=== PATIENT | female | born 1985 | race Caucasian/White ===

== ENCOUNTER 2016-11-28 10:21 | Emergency (ER) | payer MEDICARE, OTHER ==
[2016-11-28 10:34] VITALS: BP 122/82
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
[2016-11-28] MEDS ORDERED: Ondansetron 4 MG/2 ML SDV IVPUSH ONE (10:57)
[2016-11-28] MEDS ORDERED: HYDROmorphone 1 MG/ML Syringe IVPUSH ONE (10:57)
[2016-11-28] MEDS ORDERED: Dextrose 5%-0.9% NaCl 1,000 ML IV SCH (11:00)
[2016-11-28] MEDS ORDERED: diphenhydrAMINE 50 MG/ML SDV IVPUSH ONE ×2 (11:49→12:44)
[2016-11-28] MEDS ORDERED: HYDROmorphone 0.5 MG/0.5 ML Syringe IVPUSH ONE (11:49)
[2016-11-28] MEDS ORDERED: Ketorolac 30 MG/ML SDV IVPUSH SCH (12:30)
--- NOTE | 2016-11-29 10:31 | CT ---
Head CT Technique: Multiple axial sections through the brain were obtained. Intravenous contrast was not utilized. Comparison: Prior head CT exam of 12/05/10 and 04/09/12. Findings: Suboccipital craniotomy is noted as an interval change from previous exam. Slight area of associated encephalomalacia is seen containing dystrophic calcification within the posterior mid cerebellum. No other abnormal parenchymal densities are seen. No evidence of intracranial hemorrhage. No midline shift or mass effect is seen. No acute calvarial abnormality is identified. Impression: 1. Suboccipital craniotomy. Adjacent area of encephalomalacia containing calcification within the posterior mid cerebellum which appears as an interval change but otherwise old. 2. No acute intracranial abnormality is identified. Diagnostic code #2 Agree with preliminary report issued by [facility] ([facility] preliminary report dictated on 11/28/16, 12:39 PM Central Time
== END 2016-11-28 12:55 | disposition home or self-care (01) ==
LOC: JD.ED 10:21
DX: G43.909 Migraine, unspecified, not intractable, without status migrainosus (principal); F17.210 Nicotine dependence, cigarettes, uncomplicated; Z90.49 Acquired absence of other specified parts of digestive tract; Z98.890 Other specified postprocedural states; Z79.899 Other long term (current) drug therapy; Z88.1 Allergy status to other antibiotic agents; Z88.2 Allergy status to sulfonamides; Z88.5 Allergy status to narcotic agent; Z88.8 Allergy status to other drugs, medicaments and biological substances
CPT/HCPCS: 36415; 70450; 80053; 85025; 86140; 96361; 96374; 96375; 96376; 99284; J1170; J1200; J1885; J2405; J7042

== ENCOUNTER 2016-11-30 16:26 | Emergency (ER) | payer OTHER ==
[2016-11-30 16:45] VITALS: BP 134/91
[2016-11-30] MEDS ORDERED: Ketorolac 60 MG/2 ML SDV IM ONE (17:09)
[2016-11-30] MEDS ORDERED: Ondansetron 4 MG Tab.DIS PO ONE (17:09)
[2016-11-30] MEDS ORDERED: Haloperidol Lactate 5 MG/ML SDV IM ONE (17:09)
[2016-11-30] MEDS ORDERED: diphenhydrAMINE 50 MG/ML SDV IM ONE (17:09)
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
[2016-11-30] MEDS ORDERED: Haloperidol Lactate 5 MG/ML SDV ONE (17:34)
== END 2016-11-30 18:20 | disposition home or self-care (01) ==
LOC: JD.ED 16:26
DX: R51 Headache (principal); F17.210 Nicotine dependence, cigarettes, uncomplicated; Z88.1 Allergy status to other antibiotic agents; Z88.5 Allergy status to narcotic agent; Z88.2 Allergy status to sulfonamides; Z88.8 Allergy status to other drugs, medicaments and biological substances; Z79.899 Other long term (current) drug therapy; Z98.890 Other specified postprocedural states; Z90.49 Acquired absence of other specified parts of digestive tract
CPT/HCPCS: 96372; 99284; A9270; J1200; J1630; J1885; 99283

== ENCOUNTER 2016-12-01 20:48 | Emergency (ER) | payer OTHER ==
[2016-12-01 20:59] VITALS: BP 125/92
[2016-12-01] MEDS ORDERED: methylPREDNISolone Sodium Succinate 125 MG/2 ML SDV IVPUSH ONE (21:02)
--- NOTE | 2016-12-01 21:02 | EDM.PDOC ---
ED HPI GENERAL MEDICAL PROBLEM - General Chief Complaint: Allergic Reaction Stated Complaint: ALLERGIC REACTION Time Seen by Provider: 12/01/16 20:55 - History of Present Illness INITIAL COMMENTS - FREE TEXT/NARRATIVE: 31-year-old female presents emergency room with facial swelling tongue swelling and itchiness all over. Patient states she woke up with itching all over and then developed some hives. About 45 minutes prior to arrival the patient was eating a cucumber and developed some facial and tongue swelling. She denies any breathing difficulties or shortness of breath she is clearing her secretions without difficulty. The patient denies having a reaction like this in the past. The patient has attempted Benadryl she took 50 mg 30 minutes prior to arrival. Face Pain Score (Numeric/FACES): 7 - Related Data Allergies Allergy/AdvReac Type Severity Reaction Status Date / Time amoxicillin [Amoxicillin] Allergy Rash Verified 11/30/16 16:45 metoclopramide HCl Allergy Rash Verified 11/30/16 16:45 [From Reglan] morphine Allergy Rash Verified 11/30/16 16:45 prochlorperazine edisylate Allergy Rash Verified 11/30/16 16:45 [From Compazine] prochlorperazine maleate Allergy Rash Verified 11/30/16 16:45 [From Compazine] Sulfa (Sulfonamide Allergy Rash Verified 11/30/16 16:45 Antibiotics) Home Meds: Home Meds Omeprazole [Prilosec] 20 mg PO DAILY 03/08/14 [History] ALPRAZolam [Alprazolam] 1 mg PO Q8H PRN #60 tablet 11/28/16 [Rx] Duloxetine. 1 tab PO DAILY 11/28/16 [History] busPIRone HCl [busPIRone] 30 mg PO BID #60 tablet 11/28/16 [Rx] levETIRAcetam [Keppra] 1,000 mg PO BID #60 tablet 11/28/16 [Rx] oxyCODONE HCl/Acetaminophen [Percocet 5-325 mg Tablet] 1 - 2 each PO Q4H PRN # 12 tablet 11/28/16 [Rx] traZODone HCl [Trazodone HCl] 100 mg PO BEDTIME #60 tablet 11/28/16 [Rx] Prednisone [IJD: predniSONE] 60 mg PO WITHBREAKFAST #15 tab 12/01/16 [Rx] Past Medical History Other Gastrointestinal History: crohns Neurological History: Reports: Seizure, Other (See Below) Other Neuro History: brain tumor - Past Surgical History HEENT Surgical History: Reports: Tonsillectomy GI Surgical History: Reports: Appendectomy, Cholecystectomy, Other (See Below) Other GI Surgeries/Procedures: colon resection Neurological Surgical History: Reports: Other (See Below) Other Neurological Surgeries/Procedures: tumor removed Social & Family History - Tobacco Use Smoking Status *Q: Current Every Day Smoker Years of Tobacco use: 13 Packs/Tins Daily: 0.5 - Caffeine Use Caffeine Use: Reports: Coffee - Alcohol Use Days Per Week of Alcohol Use: 0 - Recreational Drug Use Recreational Drug Use: No - Living Situation & Occupation Living situation: Reports: Occupation: Employed ED ROS ALLERGIC REACTION - Review of Systems Review Of Systems: See Below Constitutional: Reports: No Symptoms HEENT: Reports: Other (Facial swelling tongue swelling). Denies: No Symptoms, Ear Discharge, Ear Pain, Throat Pain, Throat Swelling, Vision Change Respiratory: Reports: No Symptoms Cardiovascular: Reports: No Symptoms Endocrine: Reports: No Symptoms : Reports: No Symptoms Neurological: Reports: No Symptoms ED EXAM GENERAL NO PERIP PULSE - Physical Exam Exam: See Below Exam Limited By: No Limitations General Appearance: Alert, No Apparent Distress, Other (With her facial swelling tongue swelling her condition is concerning) Eye Exam: Bilateral Eye: Normal Inspection Ears: Normal External Exam, Normal Canal, Hearing Grossly Normal, Normal TMs Nose: Normal Inspection, Normal Mucosa, No Blood Throat/Mouth: Other (Tongue is somewhat swollen airway appears normal) Head: Other (Mild facial swelling) Neck: Normal Inspection, Supple, Non-Tender. No: Lymphadenopathy (L), Lymphadenopathy (R) Respiratory/Chest: No Respiratory Distress, Lungs Clear, Normal Breath Sounds GI/Abdominal: Normal Bowel Sounds, Soft, Non-Tender Extremities: Normal Inspection, No Pedal Edema, Redness Neurological: Alert, Oriented Course - Vital Signs Last Recorded V/S: Last Vital Signs Temp 36.4 C 12/01/16 20:52 Pulse 104 H 12/01/16 20:52 Resp 16 12/01/16 20:52 BP 125/92 H 12/01/16 20:52 Pulse Ox 99 12/01/16 20:52 - Orders/Labs/Meds Meds: Medications Discontinued Medications Generic Name Dose Route Start Last Admin Trade Name Rachel PRN Reason Stop Dose Admin Epinephrine HCl 0.5 mg 12/01/16 21:03 12/01/16 21:11 Adrenalin 1:1000 IM 12/01/16 21:04 0.5 mg ONETIME ONE Administration Famotidine 40 mg 12/01/16 21:03 12/01/16 21:17 Pepcid IVPUSH 12/01/16 21:04 40 mg ONETIME ONE Administration Famotidine Confirm 12/01/16 21:22 12/01/16 21:23 Pepcid Administered 12/01/16 21:23 Not Given Dose 20 mg .ROUTE .STK-MED ONE Methylprednisolone Sodium Succinate 125 mg 12/01/16 21:02 12/01/16 21:13 Solu-Medrol IVPUSH 12/01/16 21:03 125 mg ONETIME ONE Administration Ondansetron HCl 4 mg 12/01/16 21:17 12/01/16 21:26 Zofran IVPUSH 12/01/16 21:18 4 mg ONETIME ONE Administration - Re-Assessments/Exams Free Text/Narrative Re-Assessment/Exam: 12/01/16 21:18 Patient received epinephrine her talking is getting better and facial and tongue swelling improving patient received Solu-Medrol 40 mg of Pepcid I did not give Benadryl as she took 50 mg prior to arrival we'll watch closely. 12/01/16 23:40 Patient is doing much better like to go home and get some rest she's received IV Solu-Medrol 125 mg Pepcid 40 mg. She took her Benadryl at home just before coming in. She would like to go home and get some rest. Departure - Departure Time of Disposition: 23:41 Disposition: Home, Self-Care 01 Clinical Impression: Allergic reaction, Tongue swelling - Discharge Information Prescriptions: Prednisone [IJD: predniSONE] 60 mg PO WITHBREAKFAST #15 tab Referrals: PCP,None [Primary Care Provider] - Forms: ED Department Discharge Additional Instructions: Return to the emergency room with any questions problems or worsening symptoms. Avoid cucumbers. You been started on prednisone you'll take 60 mg every morning for 5 days. Continue your Benadryl 25-50 mg every 6 hours as needed. Take Pepcid, this is [id number], 20 mg twice daily for 1 week and then decrease it to once daily. Try loratadine 10 mg daily this may help with your chronic itching. Follow-up in the Hospital clinic [id number]. Or with the provider of your choice on Saturday or Saturday for recheck
[2016-12-01] MEDS ORDERED: Famotidine 20 MG/2 ML SDV IVPUSH ONE (21:03)
[2016-12-01] MEDS ORDERED: EPINEPHrine 1 MG/ML SDV IM ONE (21:03)
[2016-12-01] MEDS ORDERED: Ondansetron 4 MG/2 ML SDV IVPUSH ONE (21:17)
[2016-12-01] MEDS ORDERED: Famotidine 20 MG/2 ML SDV ONE (21:22)
== END 2016-12-02 | disposition home or self-care (01) ==
LOC: JD.ED 20:48
DX: R22.0 Localized swelling, mass and lump, head (principal); L50.9 Urticaria, unspecified; L29.9 Pruritus, unspecified; T78.1XXA Other adverse food reactions, not elsewhere classified, initial encounter; F17.210 Nicotine dependence, cigarettes, uncomplicated; Z88.5 Allergy status to narcotic agent; Z88.2 Allergy status to sulfonamides; Z88.8 Allergy status to other drugs, medicaments and biological substances; Z79.899 Other long term (current) drug therapy; Z90.49 Acquired absence of other specified parts of digestive tract; Z98.890 Other specified postprocedural states; Z88.1 Allergy status to other antibiotic agents
CPT/HCPCS: 96372; 96374; 96375; 99283; J0171; J2405; J2930

== ENCOUNTER 2016-12-03 00:47 | Emergency (ER) | payer OTHER ==
[2016-12-03 00:56] VITALS: BP 134/101
[2016-12-03] MEDS ORDERED: levETIRAcetam Soln 500 MG/5 ML Cup PO STA (01:50)
[2016-12-03] MEDS ORDERED: Ketorolac 30 MG/ML SDV IVPUSH STA (01:53)
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
== END 2016-12-03 03:37 | disposition home or self-care (01) ==
LOC: JD.ED 00:47
DX: G40.909 Epilepsy, unspecified, not intractable, without status epilepticus (principal); G44.209 Tension-type headache, unspecified, not intractable; F19.10 Other psychoactive substance abuse, uncomplicated; F17.210 Nicotine dependence, cigarettes, uncomplicated; Z88.8 Allergy status to other drugs, medicaments and biological substances; Z88.2 Allergy status to sulfonamides; Z88.5 Allergy status to narcotic agent; Z90.49 Acquired absence of other specified parts of digestive tract; Z90.710 Acquired absence of both cervix and uterus
CPT/HCPCS: 36415; 80053; 80306; 82550; 83735; 84100; 85025; 96374; 99285; A9270; G0480; J1885; 99284

== ENCOUNTER 2017-09-17 00:33 | Emergency (ER) | payer OTHER ==
[2017-09-17 00:41] VITALS: BP 117/80
[2017-09-17] MEDS ORDERED: predniSONE 20 MG Tab PO STA (02:02)
--- NOTE | 2017-09-17 02:07 | EDM.PDOC ---
ED HPI GENERAL MEDICAL PROBLEM - General Chief Complaint: Allergic Reaction Stated Complaint: poss allergic reaction Time Seen by Provider: 09/17/17 01:44 Source of Information: Reports: Patient History Limitations: Reports: No Limitations - History of Present Illness INITIAL COMMENTS - FREE TEXT/NARRATIVE: The patient states that she developed general pruritus and a nonraised erythematous rash in numerous areas on her body, around 17:00. The pruritus and rash appear to spare her palms and soles. She states that she took 25 mg of Benadryl around 20:00, that did not initially help, although now she is feeling much better. She states that she has had 5 episodes of emesis since 17:00. No recent diarrhea. The patient denies lip swelling, tongue swelling, difficulty swallowing, or other symptoms of angioedema. She denies having any respiratory symptoms, such as wheezing or dyspnea. No prior similar symptoms. The patient's PCP is Dr. Gates. - Related Data Allergies Allergy/AdvReac Type Severity Reaction Status Date / Time amoxicillin [Amoxicillin] Allergy Rash Verified 11/30/16 16:45 metoclopramide HCl Allergy Rash Verified 11/30/16 16:45 [From Reglan] morphine Allergy Rash Verified 11/30/16 16:45 prochlorperazine edisylate Allergy Rash Verified 11/30/16 16:45 [From Compazine] prochlorperazine maleate Allergy Rash Verified 11/30/16 16:45 [From Compazine] Sulfa (Sulfonamide Allergy Rash Verified 11/30/16 16:45 Antibiotics) Home Meds: Home Meds levETIRAcetam [Keppra] 500 mg PO BID 12/03/16 [History] Amitriptyline [Elavil] 200 mg PO BEDTIME 09/17/17 [History] DULoxetine HCl [Cymbalta] 60 mg PO DAILY 09/17/17 [History] Metoprolol Tartrate 50 mg PO DAILY 09/17/17 [History] predniSONE [Prednisone] 1 tab PO BEDTIME #3 tablet 09/17/17 [Rx] Past Medical History Gastrointestinal History: Reports: Inflammatory Bowel Disease (Crohn disease) Neurological History: Reports: Seizure, Other (See Below) (Pituitary tumor, excised) Psychiatric History: Reports: Addiction - Past Surgical History Head Surgeries/Procedures: Reports: Craniotomy (For excision of pituitary tumor March 2016) HEENT Surgical History: Reports: Tonsillectomy GI Surgical History: Reports: Appendectomy, Cholecystectomy, Other (See Below) ( Hemicolectomy) Female Surgical History: Reports: Hysterectomy Musculoskeletal Surgical History: Reports: Other (See Below) (Left elbow pinning ) Social & Family History - Family History Family Medical History: Noncontributory - Tobacco Use Smoking Status *Q: Current Every Day Smoker Years of Tobacco use: 17 Packs/Tins Daily: 1 - Caffeine Use Caffeine Use: Reports: Coffee - Alcohol Use Alcohol Use History: Yes Alcohol Use Frequency: Binges - Recreational Drug Use Recreational Drug Use: Yes Recreational Drug Type: Reports: Cocaine, Heroin - Living Situation & Occupation Living situation: Reports: (), with Family (parents) Occupation: Unemployed ED ROS ALLERGIC REACTION - Review of Systems Review Of Systems: ROS reveals no pertinent complaints other than HPI. ED EXAM GENERAL NO PERIP PULSE - Physical Exam Exam: See Below Exam Limited By: No Limitations General Appearance: Alert, WD/WN, No Apparent Distress Eye Exam: Bilateral Eye: Normal Inspection Ears: Normal External Exam, Hearing Grossly Normal Nose: Normal Inspection, No Blood Throat/Mouth: Normal Inspection, Normal Lips, Normal Teeth, Normal Gums, Normal Oropharynx (no uvular swellinig), Normal Voice, No Airway Compromise Head: Atraumatic, Normocephalic Neck: Normal Inspection, Supple, Non-Tender, Full Range of Motion. No: Lymphadenopathy (L), Lymphadenopathy (R) Respiratory/Chest: No Respiratory Distress, Lungs Clear, Normal Breath Sounds, No Accessory Muscle Use. No: Wheezing Cardiovascular: Normal Peripheral Pulses, Regular Rate, Rhythm, No Edema, No Gallop, No JVD, No Murmur, No Rub GI/Abdominal: Normal Bowel Sounds, Soft, Non-Tender, No Organomegaly, No Distention, No Abnormal Bruit, No Mass (Female) Exam: Deferred Rectal (Female) Exam: Deferred Back Exam: Normal Inspection, Full Range of Motion, NT Extremities: Normal Inspection, Normal Range of Motion, No Pedal Edema, Normal Capillary Refill Neurological: Alert, Oriented, Normal Cognition, No Motor/Sensory Deficits Psychiatric: Normal Affect Skin Exam: Warm, Dry, Intact, Normal Color, Erythema (There are a few areas on the patient's body, including her anterior abdomen, medial distal right leg, with patches of non-raised erythema, that she states are still pruritic) Course - Vital Signs Last Recorded V/S: Last Vital Signs Temp 36.8 C 09/17/17 00:38 Pulse 99 09/17/17 00:38 Resp 16 09/17/17 00:38 BP 117/80 09/17/17 00:38 Pulse Ox 96 09/17/17 00:38 - Orders/Labs/Meds Meds: Medications Discontinued Medications Generic Name Dose Route Start Last Admin Trade Name Rachel PRN Reason Stop Dose Admin Prednisone 60 mg 09/17/17 02:02 09/17/17 02:10 Prednisone PO 09/17/17 02:03 60 mg ONETIME STA Administration - Re-Assessments/Exams Free Text/Narrative Re-Assessment/Exam: 09/17/17 02:03 The patient presents with symptoms of generalized pruritus and erythematous rash , that spared her palms and soles. She also had 5 episodes of nausea and emesis. It is possible that the patient is suffering from idiopathic urticaria, but I think it more likely that she is suffering from an allergic reaction to either medication or food. For tonight purposes, she will be given 60 mg prednisone, and I will prescribe a three-day course of 20 mg per night. I will refer her to Dr. Davila, Ordnance Handler. Departure - Departure Time of Disposition: 02:05 Disposition: Home, Self-Care 01 Condition: Good Clinical Impression: Generalized pruritus, Erythematous rash - Discharge Information Prescriptions: predniSONE [Prednisone] 1 tab PO BEDTIME #3 tablet Instructions: Pruritus Referrals: Kan Gates [Primary Care Provider] - Quintin Davila MD [Ordering Only Provider] - Forms: ED Department Discharge Additional Instructions: You were seen in the emergency room for generalized itchiness, a red rash, nausea, and vomiting The cause of your symptoms is not certain, but is MOST LIKELY due to an allergic reaction to either a medicine or food that you ate. You have been started on the steroid prednisone. A prescription for prednisone has been sent to the [facility], located in the [facility] store. Take one tablet at bedtime, starting ton, 09/17/2017, as prescribed. Follow-up with the Ordnance Handler Dr. Quintin Davila in [place], at the next available appointment, to determine what the cause of your reaction was. If your symptoms fail to improve, or return after you have finished the prednisone, please follow-up with your PCP, Dr. Gates, or return to the ER for reevaluation.
== END 2017-09-17 02:16 | disposition home or self-care (01) ==
LOC: JD.ED 00:33
DX: L29.8 Other pruritus (principal); F17.210 Nicotine dependence, cigarettes, uncomplicated; Z88.1 Allergy status to other antibiotic agents; Z88.8 Allergy status to other drugs, medicaments and biological substances; Z88.5 Allergy status to narcotic agent; Z88.2 Allergy status to sulfonamides; Z79.899 Other long term (current) drug therapy
CPT/HCPCS: 99283; A9270

== ENCOUNTER 2017-11-20 22:46 | Emergency (ER) | payer OTHER ==
[2017-11-20 23:04] VITALS: BP 123/88
--- NOTE | 2017-11-20 23:04 | EDM.PDOC ---
ED HPI GENERAL MEDICAL PROBLEM - General Chief Complaint: ENT Problem Stated Complaint: TOOTH PAIN Time Seen by Provider: 11/20/17 22:56 Source of Information: Reports: Patient History Limitations: Reports: No Limitations - History of Present Illness INITIAL COMMENTS - FREE TEXT/NARRATIVE: Patient presents with severe dental pain. She had a root canal and she has grand mal seizure within the last week and it caused her to bite her tongue but also had the crown popped out of tooth #31. She since had severe pain and not able to control with [id number] remedies such as Orajel, ice, meloxicam, Tylenol. No fevers or chills no swallowing difficulty no shortness of breath no facial swelling. Denies she had a hysterectomy. She does have allergies that are reviewed including amoxicillin Reglan morphine Right Lower Tooth/Teeth Pain Score (Numeric/FACES): 8 - Related Data Allergies Allergy/AdvReac Type Severity Reaction Status Date / Time amoxicillin [Amoxicillin] Allergy Rash Verified 11/30/16 16:45 metoclopramide HCl Allergy Rash Verified 11/30/16 16:45 [From Reglan] morphine Allergy Rash Verified 11/30/16 16:45 prochlorperazine edisylate Allergy Rash Verified 11/30/16 16:45 [From Compazine] prochlorperazine maleate Allergy Rash Verified 11/30/16 16:45 [From Compazine] Sulfa (Sulfonamide Allergy Rash Verified 11/30/16 16:45 Antibiotics) Home Meds: Home Meds levETIRAcetam [Keppra] 500 mg PO BID 12/03/16 [History] Amitriptyline [Elavil] 200 mg PO BEDTIME 09/17/17 [History] DULoxetine HCl [Cymbalta] 60 mg PO DAILY 09/17/17 [History] Metoprolol Tartrate 50 mg PO DAILY 09/17/17 [History] Acetaminophen/HYDROcodone [[place] 325-5 MG] 1 - 2 tab PO Q4H PRN #10 tablet 11/20 [Rx] Cephalexin [Keflex] 500 mg PO TID #30 capsule 11/20/17 [Rx] Past Medical History Gastrointestinal History: Reports: Inflammatory Bowel Disease Other Gastrointestinal History: crohns Neurological History: Reports: Seizure, Other (See Below) Other Neuro History: brain tumor Psychiatric History: Reports: Addiction - Past Surgical History Head Surgeries/Procedures: Reports: Craniotomy HEENT Surgical History: Reports: Oral Surgery, Tonsillectomy GI Surgical History: Reports: Appendectomy, Cholecystectomy, Other (See Below) Female Surgical History: Reports: Hysterectomy Musculoskeletal Surgical History: Reports: Other (See Below) Social & Family History - Family History Family Medical History: Noncontributory - Tobacco Use Smoking Status *Q: Current Every Day Smoker Years of Tobacco use: 16 Packs/Tins Daily: 0.5 - Caffeine Use Caffeine Use: Reports: Coffee - Recreational Drug Use Recreational Drug Use: No - Living Situation & Occupation Living situation: Reports: (), with Family (parents) Occupation: Unemployed ED ROS ENT - Review of Systems Review Of Systems: See Below Constitutional: Denies: Fever, Chills HEENT: Reports: Dental Pain Respiratory: Denies: Shortness of Breath, Cough Neurological: Denies: Headache ED EXAM, ENT - Physical Exam Exam: See Below Exam Limited By: No Limitations General Appearance: Alert, WD/WN, Mild Distress Mouth/Throat: Normal Inspection, Normal Gums, Dental Tenderness, Other (Does appear to be a cracker least opening where she must of had a root canal at tooth number of believe 31. No gumline swelling no. Apical abscess, no sublingual swelling, no trismus.). No: Drooling, Gum Swelling, Pharyngeal Erythema, Throat Swelling, Trismus Course - Vital Signs Text/Narrative:: Dental pain around tooth #31, placed a dental block using the tetracaine and had good results with anesthesia. Will start patient on Keflex for antibiotic possible infection and give her a small dose of hydrocodone if needed otherwise she is meloxicam and other interventions and follow-up with the dentist. Last Recorded V/S: Last Vital Signs Temp 99.0 F 11/20/17 23:02 Pulse 93 11/20/17 23:02 Resp 20 11/20/17 23:02 BP 123/88 11/20/17 23:02 Pulse Ox 98 11/20/17 23:02 Departure - Departure Time of Disposition: 23:11 Disposition: Home, Self-Care 01 Clinical Impression: Toothache - Discharge Information Referrals: PCP,None [Primary Care Provider] - Forms: ED Department Discharge Additional Instructions: Follow up with the dentist. Return sooner if any increasing pain, fevers, swallowing difficulty, swelling, worse
[2017-11-20] MEDS ORDERED: Acetaminophen/HYDROcodone 325-5 MG Tab PO ONE (23:13)
== END 2017-11-20 23:23 | disposition home or self-care (01) ==
LOC: JD.ED 22:46
DX: K08.89 Other specified disorders of teeth and supporting structures (principal); F17.210 Nicotine dependence, cigarettes, uncomplicated; Z79.899 Other long term (current) drug therapy; Z88.2 Allergy status to sulfonamides; Z88.5 Allergy status to narcotic agent; Z88.8 Allergy status to other drugs, medicaments and biological substances
CPT/HCPCS: 64400; 99283; A9270

== ENCOUNTER 2018-06-25 15:19 | Emergency (ER) | payer MEDICAID ==
[2018-06-25 15:36] VITALS: BP 118/89
[2018-06-25] MEDS ORDERED: metroNIDAZOLE 500 MG Tab PO ONE (15:49)
[2018-06-25] MEDS ORDERED: Doxycycline 100 MG Cap PO ONE (15:49)
--- NOTE | 2018-06-25 15:56 | EDM.PDOC ---
ED HPI GENERAL MEDICAL PROBLEM - General Chief Complaint: Bite:Animal, Insect Stated Complaint: ANIMAL BITE/CAT Time Seen by Provider: 06/25/18 15:28 Source of Information: Reports: Patient, RN Notes Reviewed History Limitations: Reports: No Limitations - History of Present Illness INITIAL COMMENTS - FREE TEXT/NARRATIVE: The patient states that she was bitten on her left wrist and scratched in numerous places on her left forearm by her girlfriend's cat around 15:25 this afternoon. She is otherwise uninjured. The patient reports a rash, possibly hives, to both amoxicillin and sulfa, as an adult. The patient's PCP is Dr. Cristina Almodovar. Left Arm Pain Score (Numeric/FACES): 8 - Related Data Allergies Allergy/AdvReac Type Severity Reaction Status Date / Time amoxicillin [Amoxicillin] Allergy Rash Verified 06/25/18 15:35 metoclopramide HCl Allergy Rash Verified 06/25/18 15:35 [From Reglan] morphine Allergy Rash Verified 06/25/18 15:35 prochlorperazine edisylate Allergy Rash Verified 06/25/18 15:35 [From Compazine] prochlorperazine maleate Allergy Rash Verified 06/25/18 15:35 [From Compazine] Sulfa (Sulfonamide Allergy Rash Verified 06/25/18 15:35 Antibiotics) Home Meds: Home Meds levETIRAcetam [Keppra] 500 mg PO BID 12/03/16 [History] Amitriptyline [Elavil] 200 mg PO BEDTIME 09/17/17 [History] DULoxetine HCl [Cymbalta] 60 mg PO DAILY 09/17/17 [History] Metoprolol Tartrate 50 mg PO DAILY 09/17/17 [History] Ondansetron [Zofran ODT] 4 mg PO Q6H PRN #20 tab.dis 02/14/18 [Rx] predniSONE [Prednisone] 40 mg PO DAILY #10 tablet 02/14/18 [Rx] Doxycycline [Vibramycin] 1 tab PO Q12HR #10 tab 06/25/18 [Rx] metroNIDAZOLE [Flagyl] 1 tab PO Q8H #15 tab 06/25/18 [Rx] Past Medical History Gastrointestinal History: Reports: Inflammatory Bowel Disease (Crohn disease) Neurological History: Reports: Seizure (2 pituitary tumor) Psychiatric History: Reports: Addiction (cocaine, heroin) - Past Surgical History Head Surgeries/Procedures: Reports: Craniotomy (pituitary tumor excision March 2016) HEENT Surgical History: Reports: Tonsillectomy GI Surgical History: Reports: Appendectomy, Cholecystectomy (2009), Other (See Below) (Hemicolectomy) Female Surgical History: Reports: Hysterectomy (partial) Musculoskeletal Surgical History: Reports: Other (See Below) (Left elbow pinning ) Social & Family History - Family History Family Medical History: Noncontributory - Tobacco Use Smoking Status *Q: Current Every Day Smoker Years of Tobacco use: 18 Packs/Tins Daily: 0.5 Packs/Tins Daily Comment: Down from 1 ppd - Caffeine Use Caffeine Use: Reports: Coffee - Alcohol Use Alcohol Use History: Yes Date/Time of Last Drink Comment: last drank around 2015 Alcohol Use Frequency: Binges - Recreational Drug Use Recreational Drug Use: Yes Drug Use in Last 12 Months: No Recreational Drug Type: Reports: Cocaine (last smoked 2017), Heroin (last injected 2017), Marijuana/Hashish (last smoked 2016) - Living Situation & Occupation Living situation: Reports: , with Significant Other (Girlfriend) 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 ED EXAM, ANIMAL BITE - Physical Exam Exam: See Below Exam Limited By: No Limitations General Appearance: Alert, WD/WN, No Apparent Distress Extremities: Other (Numerous scratches to the left forearm, several of which are deep enough to cause bleeding, but none of which are severe enough to require suturing. There is at least one, and possibly two puncture wounds to the dorsal aspect of the distal forearm/proximal left wrist. Neurovascular status of the left upper extremity is intact.) Course - Vital Signs Last Recorded V/S: Last Vital Signs Temp 36.4 C 06/25/18 15:29 Pulse 85 06/25/18 15:29 Resp 16 06/25/18 15:29 BP 118/89 06/25/18 15:29 Pulse Ox 98 06/25/18 15:29 - Orders/Labs/Meds Meds: Medications Discontinued Medications Generic Name Dose Route Start Last Admin Trade Name Freq PRN Reason Stop Dose Admin Doxycycline Hyclate 100 mg 06/25/18 15:49 06/25/18 15:52 Vibramycin PO 06/25/18 15:50 100 mg ONETIME ONE Administration Metronidazole 500 mg 06/25/18 15:49 06/25/18 15:52 Flagyl PO 06/25/18 15:50 500 mg ONETIME ONE Administration - Re-Assessments/Exams Free Text/Narrative Re-Assessment/Exam: 06/25/18 15:51 The patient has at least one puncture wound to the dorsal aspect of her left wrist from a cat bite, along with numerous scratches to her left forearm. Antibiotics are absolutely required, however, the patient reports the development of a rash, possibly hives, to both amoxicillin and sulfa, therefore the patient will require doxycycline and either Flagyl or clindamycin for 3-5 days. I have elected to prescribe her doxycycline and oral Flagyl, as I believe the side effect profile is preferable to doxycycline and clindamycin. She will need to keep the wounds clean with ordinary soap and water, and I explained to her that if there is any suggestion of an infection developing, that she either return here or follow up with her PCP immediately. Departure - Departure Time of Disposition: 15:56 Disposition: Home, Self-Care 01 Condition: Fair Clinical Impression: Cat bite of left wrist, Cat scratch of left forearm - Discharge Information *PRESCRIPTION DRUG MONITORING PROGRAM REVIEWED*: Not Applicable *COPY OF PRESCRIPTION DRUG MONITORING REPORT IN PATIENT LIZ: Not Applicable Prescriptions: Doxycycline [Vibramycin] 1 tab PO Q12HR #10 tab metroNIDAZOLE [Flagyl] 1 tab PO Q8H #15 tab Instructions: Animal Bite, [id number] Referrals: Cristina Almodovar MD [Primary Care Provider] - Forms: ED Department Discharge Additional Instructions: You were seen in the emergency room after being bitten on your left wrist and scratched on your left forearm by a cat. You have been started on the antibiotics metronidazole and doxycycline. Prescriptions for metronidazole and doxycycline have been sent to the [facility], located in the [facility] store. Take one tablet of metronidazole every 8 hours, starting around midnight tonight , as prescribed. Take one tablet of doxycycline every 12 hours, starting early tomorrow morning, , 06/26/2018, as prescribed. Finish both prescriptions unless told otherwise by a doctor. Take [id number] ibuprofen as needed for discomfort. Keep the wounds clean with ordinary soap and water. If there is any bleeding, cover the wound with a Band-Aid. As discussed, cat bites are very serious and can lead to severe infections. If there is any suggestion that the puncture wounds are becoming infected, such as increased redness, swelling, or purulent drainage, please either return to the ER or see your PCP, Dr. Almodovar, as soon as possible. Strongly consider getting rid of the cat.
== END 2018-06-25 16:10 | disposition home or self-care (01) ==
LOC: JD.ED 15:19
DX: S61.552A Open bite of left wrist, initial encounter (principal); S50.812A Abrasion of left forearm, initial encounter; F17.210 Nicotine dependence, cigarettes, uncomplicated; Z79.899 Other long term (current) drug therapy; Z88.1 Allergy status to other antibiotic agents; Z88.5 Allergy status to narcotic agent; Z88.8 Allergy status to other drugs, medicaments and biological substances; Z88.2 Allergy status to sulfonamides; W55.01XA Bitten by cat, initial encounter
CPT/HCPCS: 99283; A9270

== ENCOUNTER 2018-07-24 18:36 | Emergency (ER) | payer MEDICAID ==
[2018-07-24] MEDS ORDERED: Aspirin 81 MG Tab.Chew PO ONE (19:34)
[2018-07-24] MEDS ORDERED: Nitroglycerin 0.3 MG Tab.SL SL ONE (19:47)
[2018-07-24] MEDS ORDERED: Sodium Chloride 0.9% 500 ML IV ONE (19:48)
[2018-07-24 19:57] VITALS: BP 108/71
--- NOTE | 2018-07-24 21:01 | CR ---
Chest: 2 views of the chest were obtained. Heart size and mediastinum are normal. Lungs are clear. Bony structures are unremarkable. Surgical clips are seen from prior cholecystectomy. Impression: 1. Nothing acute is seen on chest x-ray. Diagnostic code #2
--- NOTE | 2018-07-24 21:16 | EDM.PDOC ---
ED HPI GENERAL MEDICAL PROBLEM - General Chief Complaint: Chest Pain Stated Complaint: CHEST PAIN Time Seen by Provider: 07/24/18 18:48 Source of Information: Reports: Patient, Old Records History Limitations: Reports: No Limitations - History of Present Illness INITIAL COMMENTS - FREE TEXT/NARRATIVE: 33 yo F with h/o "ischemic cardiac disease" comes in today for sudden onset of pain to the left chest about one hour before coming in to the ED while bending down at work. States pain feels like someone is "grinding my heart tighter and tighter on each side", radiates to left arm and jaw. States it is 8/10. She states bending over and movement makes it worse, she feels faint, and nauseated. She has not tried any medications at home. She states she has had pain like this before, about 4 months ago was the last episode, and she had a stress test done. She states she was diagnosed with "ischemic cardiac disease". The nuclear med report here on 05/30/18 reads "possible mild ischemia of the anterior wall". She states she was told that she will likely need a "pacemaker and stent". She was also told that whenever she has these episodes to come into the ED for further workup. She just quit smoking 1 week ago- currently on Chantix. Was smoking 1 ppd x19 years. She also has h/o polysubstance abuse. PCP is Cristina Almodovar. She states her parts counter specialist is at the [facility] and she has an appointment in September/October. Per her PCP records, she was also started on GERD treatment (omeprazole) which has not helped as well as 81mg ASA daily. She was supposed to f/u with Dr. Levy in [place] on 06/06/18. Left Chest Pain Score (Numeric/FACES): 8 - Related Data Allergies Allergy/AdvReac Type Severity Reaction Status Date / Time amoxicillin [Amoxicillin] Allergy Rash Verified 07/24/18 18:49 metoclopramide HCl Allergy Rash Verified 07/24/18 18:49 [From Reglan] morphine Allergy Rash Verified 07/24/18 18:49 prochlorperazine edisylate Allergy Rash Verified 07/24/18 18:49 [From Compazine] prochlorperazine maleate Allergy Rash Verified 07/24/18 18:49 [From Compazine] Sulfa (Sulfonamide Allergy Rash Verified 07/24/18 18:49 Antibiotics) Home Meds: Home Meds levETIRAcetam [Keppra] 500 mg PO BID 12/03/16 [History] DULoxetine HCl [Cymbalta] 60 mg PO DAILY 09/17/17 [History] Metoprolol Tartrate 50 mg PO DAILY 09/17/17 [History] Varenicline Tartrate [Chantix] 1 tab PO BID 07/24/18 [History] busPIRone [Buspar] 1 tab PO TID 07/24/18 [History] cloNIDine [Catapres] 1 tab PO BID 07/24/18 [History] diphenhydrAMINE HCl [Benadryl] 25 mg PO ASDIRECTED PRN 07/24/18 [History] rOPINIRole [Requip] 1 tab PO DAILY 07/24/18 [History] traZODone HCl [Trazodone HCl] 150 mg PO DAILY 07/24/18 [History] Past Medical History HEENT History: Reports: Impaired Vision Cardiovascular History: Reports: Other (See Below) Other Cardiovascular History: states has ischemic heart dx Respiratory History: Reports: None Gastrointestinal History: Reports: Inflammatory Bowel Disease Other Gastrointestinal History: crohns Genitourinary History: Reports: None Neurological History: Reports: Seizure Other Neuro History: Brain tumor removed. Psychiatric History: Reports: Addiction Endocrine/Metabolic History: Reports: None Hematologic History: Reports: None Immunologic History: Reports: None Oncologic (Cancer) History: Reports: None Dermatologic History: Reports: None - Infectious Disease History Infectious Disease History: Reports: None - Past Surgical History Head Surgeries/Procedures: Reports: Craniotomy HEENT Surgical History: Reports: Adenoidectomy, Oral Surgery, Tonsillectomy GI Surgical History: Reports: Appendectomy, Cholecystectomy, Other (See Below) Female Surgical History: Reports: Hysterectomy Musculoskeletal Surgical History: Reports: Other (See Below) Other Musculoskeletal Surgeries/Procedures:: Left arm pinned Social & Family History - Family History Family Medical History: Noncontributory Cardiac: Reports: High Cholesterol, Hypertension Oncologic: Reports: Breast, Lymphoma - Tobacco Use Smoking Status *Q: Current Every Day Smoker Years of Tobacco use: 20 Packs/Tins Daily: 1 - Caffeine Use Caffeine Use: Reports: Coffee - Recreational Drug Use Recreational Drug Use: Yes Drug Use in Last 12 Months: No Recreational Drug Type: Reports: Cocaine, Heroin Recreational Drug Use Frequency: Not Used In Over 1 Year - Living Situation & Occupation Living situation: Reports: , with Significant Other (Girlfriend) 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 ED EXAM, GENERAL - Physical Exam Exam: See Below Exam Limited By: No Limitations General Appearance: Alert, WD/WN, Mild Distress Eye Exam: Bilateral Eye: EOMI, Normal Inspection, PERRL Ears: Normal External Exam, Hearing Grossly Normal Respiratory/Chest: No Respiratory Distress, Lungs Clear, Normal Breath Sounds, No Accessory Muscle Use, Chest Non-Tender Cardiovascular: Normal Peripheral Pulses, Regular Rate, Rhythm, No Edema, No Gallop, No JVD, No Murmur, No Rub Neurological: Alert, Oriented, CN II-XII Intact, Normal Cognition, Normal Gait, Normal Reflexes, No Motor/Sensory Deficits Psychiatric: Normal Affect, Normal Mood Skin Exam: Warm, Dry, Intact, Normal Color, No Rash Course - Vital Signs Last Recorded V/S: Last Vital Signs Temp 99.3 F 07/24/18 18:57 Pulse 75 07/24/18 18:57 Resp 16 07/24/18 18:57 BP 108/71 07/24/18 19:55 Pulse Ox 97 07/24/18 18:57 - Orders/Labs/Meds Orders: Active Orders 24 hr Category Date Time Status EKG Documentation Completion [RC] ASDIRECTED Care 07/24/18 19:01 Active EKG 12 Lead [EK] Stat Ther 07/24/18 19:01 Ordered Labs: Laboratory Tests 07/24/18 07/24/18 07/24/18 Range/Units 19:10 19:10 19:10 WBC 6.38 (3.98-10.04) K/mm3 RBC 4.42 (3.98-5.22) M/mm3 Hgb 13.2 (11.2-15.7) gm/L Hct 38.2 (34.1-44.9) % MCV 86.4 (79.4-94.8) fl MCH 29.9 (25.6-32.2) pg MCHC 34.6 (32.2-35.5) g/dl RDW Std Deviation 38.5 (36.4-46.3) fL Plt Count 201 (182-369) K/mm3 MPV 9.3 L (9.4-12.3) fl Neut % (Auto) 51.2 (34.0-71.1) % Lymph % (Auto) 36.1 (19.3-51.7) % [place] % (Auto) 8.8 (4.7-12.5) % Eos % (Auto) 3.4 (0.7-5.8) Baso % (Auto) 0.3 (0.1-1.2) % Neut # (Auto) 3.27 (1.56-6.13) K/mm3 Lymph # (Auto) 2.30 (1.18-3.74) K/mm3 [place] # (Auto) 0.56 H (0.24-0.36) K/mm3 Eos # (Auto) 0.22 (0.04-0.36) K/mm3 Baso # (Auto) 0.02 (0.01-0.08) K/mm3 ESR 15 (0-20) mm/hr Sodium (136-145) mEq/L Potassium (3.5-5.1) mEq/L Chloride (98-107) mEq/L Carbon Dioxide (21-32) mEq/L Anion Gap (5-15) BUN (7-18) mg/dL Creatinine (0.55-1.02) mg/dL Est Cr Clr Drug Dosing mL/min Estimated GFR (MDRD) (>60) mL/min BUN/Creatinine Ratio (14-18) Glucose (74-106) mg/dL Calcium (8.5-10.1) mg/dL Total Bilirubin (0.2-1.0) mg/dL AST (15-37) U/L ALT (14-59) U/L Alkaline Phosphatase (46-116) U/L Troponin I < 0.017 (0.00-0.056) ng/mL C-Reactive Protein (<1.0) mg/dL Total Protein (6.4-8.2) g/dl Albumin (3.4-5.0) g/dl Globulin gm/dL Albumin/Globulin Ratio (1-2) Lipase (73-393) U/L Urine Opiates Screen (TLSQUL=367) Ur Buprenorphine Scrn (CUTOFF=10) Ur Oxycodone Screen (KNN2IK=072) Urine Methadone Screen (HAZLKJ=182) Ur Propoxyphene Screen (QAWIVW=128) Ur Barbiturates Screen (QRWFNF=779) Ur Tricyclics Screen (EQZFFV=654) Ur Phencyclidine Scrn (CUTOFF=25) Ur Amphetamine Screen (FCNGLY=754) U Methamphetamines Scrn (CNTIZJ=687) U Benzodiazepines Scrn (UCECJX=050) U Cocaine Metab Screen (LMGOYJ=785) U Marijuana (THC) Screen (CUTOFF=50) 07/24/18 07/24/18 07/24/18 Range/Units 19:10 19:10 19:59 WBC (3.98-10.04) K/mm3 RBC (3.98-5.22) M/mm3 Hgb (11.2-15.7) gm/L Hct (34.1-44.9) % MCV (79.4-94.8) fl MCH (25.6-32.2) pg MCHC (32.2-35.5) g/dl RDW Std Deviation (36.4-46.3) fL Plt Count (182-369) K/mm3 MPV (9.4-12.3) fl Neut % (Auto) (34.0-71.1) % Lymph % (Auto) (19.3-51.7) % [place] % (Auto) (4.7-12.5) % Eos % (Auto) (0.7-5.8) Baso % (Auto) (0.1-1.2) % Neut # (Auto) (1.56-6.13) K/mm3 Lymph # (Auto) (1.18-3.74) K/mm3 [place] # (Auto) (0.24-0.36) K/mm3 Eos # (Auto) (0.04-0.36) K/mm3 Baso # (Auto) (0.01-0.08) K/mm3 ESR (0-20) mm/hr Sodium 140 (136-145) mEq/L Potassium 3.7 (3.5-5.1) mEq/L Chloride 104 (98-107) mEq/L Carbon Dioxide 26 (21-32) mEq/L Anion Gap 13.7 (5-15) BUN 16 (7-18) mg/dL Creatinine 0.9 (0.55-1.02) mg/dL Est Cr Clr Drug Dosing 77.49 mL/min Estimated GFR (MDRD) > 60 (>60) mL/min BUN/Creatinine Ratio 17.8 (14-18) Glucose 82 (74-106) mg/dL Calcium 9.0 (8.5-10.1) mg/dL Total Bilirubin 0.2 (0.2-1.0) mg/dL AST 12 L (15-37) U/L ALT 20 (14-59) U/L Alkaline Phosphatase 54 (46-116) U/L Troponin I (0.00-0.056) ng/mL C-Reactive Protein < 0.2 (<1.0) mg/dL Total Protein 6.8 (6.4-8.2) g/dl Albumin 3.7 (3.4-5.0) g/dl Globulin 3.1 gm/dL Albumin/Globulin Ratio 1.2 (1-2) Lipase 82 (73-393) U/L Urine Opiates Screen Negative (TQRUNC=983) Ur Buprenorphine Scrn Negative (CUTOFF=10) Ur Oxycodone Screen Negative (BUW9EA=558) Urine Methadone Screen Negative (AXSSIP=139) Ur Propoxyphene Screen Negative (FPQLPS=720) Ur Barbiturates Screen Negative (ZSNVUC=319) Ur Tricyclics Screen Negative (JIJRIA=545) Ur Phencyclidine Scrn Negative (CUTOFF=25) Ur Amphetamine Screen Negative (BXJKNW=527) U Methamphetamines Scrn Negative (MVOTFE=961) U Benzodiazepines Scrn Negative (XSCEFG=210) U Cocaine Metab Screen Negative (QDBFTZ=850) U Marijuana (THC) Screen Negative (CUTOFF=50) Meds: Medications Discontinued Medications Generic Name Dose Route Start Last Admin Trade Name Freq PRN Reason Stop Dose Admin Aspirin 324 mg 07/24/18 19:34 07/24/18 19:49 Aspirin PO 07/24/18 19:35 324 mg ONETIME ONE Administration Sodium Chloride 500 mls @ 999 mls/hr 07/24/18 19:48 Normal Saline IV 07/24/18 20:18 ONETIME ONE Nitroglycerin 0.3 mg 07/24/18 19:47 07/24/18 19:55 Nitrostat SL 07/24/18 19:48 0.3 mg ONETIME ONE Administration - Re-Assessments/Exams Free Text/Narrative Re-Assessment/Exam: 07/24/18 19:00 CBC, CMP, CRP, Troponin, ESR, CRP, Lipase, Drug Screen Ordered EKG ordered CXR ordered 07/24/18 19:[address] Golden and myself- nothing acute seen ASA 324 and Nitro 0.3 SL given 07/24/18 19:[address] Rayo read as nothing acute appreciated. 07/24/18 20:10 Pt feeling better after Nitro given. Pain went from 8/10 to 4/10. Repeat Troponin at 22:00 07/24/18 20:40 CBC and CMP WNL CRP <0.2 Troponin <0.017 ESR 15 Lipase 82 Drug Screen negative 07/24/18 21:11 Pt continues to feel better after that 1 dose of Nitro was given- pain is now 0/ 10. Would like to do a 3 hour repeat Troponin test, but pt would like to go home. She understands the risks of leaving against medical advice but would like to go anyway. Departure - Departure Time of Disposition: 21:13 Disposition: Against Medical Advice 07 Condition: Undetermined Clinical Impression: Chest pain Qualifiers: Chest pain type: unspecified Qualified Code(s): R07.9 - Chest pain, unspecified Referrals: Cristina Almodovar MD [Primary Care Provider] - Forms: ED Department Discharge, Refusal of Care AMA Additional Instructions: You were seen in the ED today for sudden onset chest pain while at work about an hour before coming in. Your EKG was normal and your blood work and urine were normal. Troponin was negative. Chest XR was normal. You responded well to Nitro and were also given high dose aspirin. Recommend completing a 3 hour repeat troponin test to rule out heart attack before you go, but at this time you feel like you would like to go home against medical advice. Recommend close follow up with your primary care physician as well as your parts counter specialist. Please return to ED if new or worsening symptoms. - My Orders Last 24 Hours: My Active Orders 07/24/18 19:01 EKG Documentation Completion [RC] ASDIRECTED EKG 12 Lead [EK] Stat - Assessment/Plan Last 24 Hours: My Active Orders 07/24/18 19:01 EKG Documentation Completion [RC] ASDIRECTED EKG 12 Lead [EK] Stat
== END 2018-07-24 21:31 | disposition left against medical advice (07) ==
LOC: JD.ED 18:36
DX: R07.9 Chest pain, unspecified (principal); F17.210 Nicotine dependence, cigarettes, uncomplicated; Z79.899 Other long term (current) drug therapy; Z88.5 Allergy status to narcotic agent; Z88.2 Allergy status to sulfonamides; Z88.8 Allergy status to other drugs, medicaments and biological substances; Z88.1 Allergy status to other antibiotic agents
CPT/HCPCS: 36415; 71046; 80053; 80306; 83690; 84484; 85025; 85652; 86140; 93005; 99285; A9270; 93010; 99284

== ENCOUNTER 2019-03-02 15:16 | Emergency (ER) | payer MEDICAID ==
--- NOTE | 2019-03-02 15:47 | EDM.PDOC ---
ED HPI GENERAL MEDICAL PROBLEM - General Chief Complaint: Lower Extremity Injury/Pain Stated Complaint: CRAMP IN CALF OF RT LEG Time Seen by Provider: 03/02/19 15:34 Source of Information: Reports: Patient History Limitations: Reports: No Limitations - History of Present Illness INITIAL COMMENTS - FREE TEXT/NARRATIVE: Patient's unfortunate 34-year-old female who presents emergency Department today with complaint of right lower extremity pain. Patient reports she was in her normal state of health until she awoke this morning with pain "like a charley horse" in her right calf. Patient reports the pain is persisted throughout the day so she presented emergency department for evaluation. Patient reports nothing makes the pain better pain is worsened with palpation or ambulation. 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 in the control status post history however she has had radiation 5 months ago for breast cancer Right Lower Leg Pain Score (Numeric/FACES): 7 - Related Data Allergies Allergy/AdvReac Type Severity Reaction Status Date / Time amoxicillin [Amoxicillin] Allergy Rash Verified 07/24/18 18:49 metoclopramide HCl Allergy Rash Verified 07/24/18 18:49 [From Reglan] morphine Allergy Rash Verified 07/24/18 18:49 prochlorperazine edisylate Allergy Rash Verified 07/24/18 18:49 [From Compazine] prochlorperazine maleate Allergy Rash Verified 07/24/18 18:49 [From Compazine] Sulfa (Sulfonamide Allergy Rash Verified 07/24/18 18:49 Antibiotics) Home Meds: Home Meds levETIRAcetam [Keppra] 500 mg PO BID 12/03/16 [History] DULoxetine HCl [Cymbalta] 90 mg PO DAILY 09/17/17 [History] Metoprolol Tartrate 50 mg PO DAILY 09/17/17 [History] busPIRone [Buspar] 1 tab PO TID 07/24/18 [History] cloNIDine [Catapres] 0.1 mg PO BID 07/24/18 [History] diphenhydrAMINE HCl [Benadryl] 25 mg PO ASDIRECTED PRN 07/24/18 [History] rOPINIRole [Requip] 1 tab PO DAILY 07/24/18 [History] traZODone HCl [Trazodone HCl] 150 mg PO DAILY 07/24/18 [History] Past Medical History HEENT History: Reports: Impaired Vision Cardiovascular History: Reports: Other (See Below) Other Cardiovascular History: states has ischemic heart dx Respiratory History: Reports: None Gastrointestinal History: Reports: Inflammatory Bowel Disease Other Gastrointestinal History: crohns Genitourinary History: Reports: None Neurological History: Reports: Seizure Other Neuro History: Brain tumor removed. Psychiatric History: Reports: Addiction Endocrine/Metabolic History: Reports: None Hematologic History: Reports: None Immunologic History: Reports: None Oncologic (Cancer) History: Reports: None Dermatologic History: Reports: None - Infectious Disease History Infectious Disease History: Reports: None - Past Surgical History Head Surgeries/Procedures: Reports: Craniotomy HEENT Surgical History: Reports: Adenoidectomy, Oral Surgery, Tonsillectomy GI Surgical History: Reports: Appendectomy, Cholecystectomy, Other (See Below) Female Surgical History: Reports: Hysterectomy Musculoskeletal Surgical History: Reports: Other (See Below) Other Musculoskeletal Surgeries/Procedures:: Left arm pinned Social & Family History - Family History Family Medical History: Noncontributory Cardiac: Reports: High Cholesterol, Hypertension Oncologic: Reports: Breast, Lymphoma - Tobacco Use Smoking Status *Q: Current Every Day Smoker Years of Tobacco use: 15 Packs/Tins Daily: 1 - Caffeine Use Caffeine Use: Reports: Coffee - Recreational Drug Use Recreational Drug Use: Yes Recreational Drug Type: Reports: Cocaine Other Recreational Drug Type: last used [id number] - Living Situation & Occupation Living situation: Reports: , with Significant Other (Girlfriend) 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) Review of Systems - Review of Systems Review Of Systems: See Below Constitutional: Denies: Chills, Fever Musculoskeletal: Reports: Leg Pain ED EXAM, GENERAL - Physical Exam Exam: See Below Exam Limited By: No Limitations General Appearance: Alert, WD/WN, Mild Distress Ears: Normal External Exam, Normal Canal, Hearing Grossly Normal, Normal TMs Nose: Normal Inspection, Normal Mucosa, No Blood Throat/Mouth: Normal Inspection, Normal Lips, Normal Teeth, Normal Gums, Normal Oropharynx, Normal Voice, No Airway Compromise Head: Atraumatic, Normocephalic Respiratory/Chest: No Respiratory Distress, Lungs Clear, Normal Breath Sounds, No Accessory Muscle Use, Chest Non-Tender Cardiovascular: Normal Peripheral Pulses, Regular Rate, Rhythm, No Edema, No Gallop, No JVD, No Murmur, No Rub GI/Abdominal: Normal Bowel Sounds, Soft, Non-Tender, No Organomegaly, No Distention, No Abnormal Bruit, No Mass Extremities: Normal Inspection, Other (Tenderness to right calf, positive Homans sign) Skin Exam: Warm, Dry, No Rash Course - Vital Signs Last Recorded V/S: Last Vital Signs Temp 98.4 F 03/02/19 15:43 Pulse 77 03/02/19 15:43 Resp 20 03/02/19 15:43 BP 123/85 03/02/19 15:43 Pulse Ox 97 03/02/19 15:43 - Re-Assessments/Exams Free Text/Narrative Re-Assessment/Exam: 03/02/19 16:35 Venous Doppler report "impression: #1 no evidence of DVT within the right lower [place] Orth in the left common femoral vein." Departure - Departure Time of Disposition: 16:35 Disposition: Home, Self-Care 01 Condition: Good Clinical Impression: Right leg pain - Discharge Information Referrals: Lita Hernández NP [Primary Care Provider] - Forms: ED Department Discharge, ED Return to Work/School Form Additional Instructions: Home, rest, Tylenol for pain, no work 2 days, return as needed for worsening condition Sepsis Event Note - Focused Exam Vital Signs: Vital Signs Temp Pulse Resp BP Pulse Ox 03/02/19 15:43 98.4 F 77 20 123/85 97 Date Exam was Performed: 03/02/19 Time Exam was Performed: 16:34
[2019-03-02 15:48] VITALS: BP 123/85; PULSE 77
--- NOTE | 2019-03-02 16:25 | US ---
Right lower extremity deep venous ultrasound: Duplex and color flow imaging was obtained of the right common femoral, proximal greater saphenous, superficial femoral, popliteal, posterior tibial peroneal veins. Left common femoral vein was also evaluated. Findings: Normal phasic flow, augmentation and compression is seen. Impression: 1. No evidence of deep venous thrombosis within the right lower extremity or within the left common femoral vein. Diagnostic code #1 This report was dictated in [place] Standard Time
== END 2019-03-02 16:43 | disposition home or self-care (01) ==
LOC: JD.ED 15:16
DX: M79.661 Pain in right lower leg (principal); Z88.0 Allergy status to penicillin; Z88.8 Allergy status to other drugs, medicaments and biological substances; Z88.5 Allergy status to narcotic agent; Z88.2 Allergy status to sulfonamides; F17.210 Nicotine dependence, cigarettes, uncomplicated
CPT/HCPCS: 93971-26-RT; 93971-RT; 99282; 99283-25

== ENCOUNTER 2019-03-09 16:15 | Emergency (ER) | payer MEDICAID ==
[2019-03-09] MEDS ORDERED: Ketorolac 30 MG/ML SDV IVPUSH ONE (16:27)
[2019-03-09] MEDS ORDERED: diphenhydrAMINE 50 MG/ML SDV IVPUSH ONE (16:27)
[2019-03-09 16:28] VITALS: BP 129/87; PULSE 79
[2019-03-09] MEDS ORDERED: Sodium Chloride 0.9% 10 ML Syringe FLUSH PRN (16:28)
--- NOTE | 2019-03-09 16:51 | EDM.PDOC ---
ED HPI GENERAL MEDICAL PROBLEM - General Chief Complaint: Head Injury Stated Complaint: HIT HEAD WHILE SNOWBOARDING Time Seen by Provider: 03/09/19 16:21 Source of Information: Reports: Patient History Limitations: Reports: No Limitations - History of Present Illness INITIAL COMMENTS - FREE TEXT/NARRATIVE: Patient is unfortunate 34-year-old female who presents emergency Department today with complaint of head injury. Patient reports that she was snowboarding yesterday and had a same level fall and hit the back of her head on the ground. Patient was wearing a helmet at the time did not suffer loss of consciousness but since that time she's had increasing pain to the occipital region of her head and in the portion of her posterior neck. Patient reports this pain is worse with range of motion or ambulation improves with rest does not alleviate. Patient reports she does have a history of seizures and awoke this morning to noticed that she had lost control of her bowel in her bladder. Patient has not had any other symptoms since no nausea no vomiting continues to have what she reports as a severe throbbing headache over the entirety of her head nothing makes the symptoms better nothing makes the symptoms worse. head Pain Score (Numeric/FACES): 8 - Related Data Allergies Allergy/AdvReac Type Severity Reaction Status Date / Time amoxicillin [Amoxicillin] Allergy Rash Verified 03/09/19 16:26 metoclopramide HCl Allergy Rash Verified 03/09/19 16:26 [From Reglan] morphine Allergy Rash Verified 03/09/19 16:26 prochlorperazine edisylate Allergy Rash Verified 03/09/19 16:26 [From Compazine] prochlorperazine maleate Allergy Rash Verified 03/09/19 16:26 [From Compazine] Sulfa (Sulfonamide Allergy Rash Verified 03/09/19 16:26 Antibiotics) Home Meds: Home Meds levETIRAcetam [Keppra] 500 mg PO BID 12/03/16 [History] DULoxetine HCl [Cymbalta] 90 mg PO DAILY 09/17/17 [History] Metoprolol Tartrate 50 mg PO DAILY 09/17/17 [History] busPIRone [Buspar] 1 tab PO TID 07/24/18 [History] cloNIDine [Catapres] 0.1 mg PO BID 07/24/18 [History] diphenhydrAMINE HCl [Benadryl] 25 mg PO ASDIRECTED PRN 07/24/18 [History] rOPINIRole [Requip] 1 tab PO DAILY 07/24/18 [History] traZODone HCl [Trazodone HCl] 150 mg PO DAILY 07/24/18 [History] ALPRAZolam [Xanax] 1 mg PO Q4HR PRN 03/09/19 [History] lamoTRIgine [Lamictal] 25 mg PO BID 03/09/19 [History] Past Medical History HEENT History: Reports: Impaired Vision Cardiovascular History: Reports: Other (See Below) Other Cardiovascular History: states has ischemic heart dx Respiratory History: Reports: None Gastrointestinal History: Reports: Inflammatory Bowel Disease Other Gastrointestinal History: crohns Genitourinary History: Reports: None Neurological History: Reports: Seizure Other Neuro History: Brain tumor removed. Psychiatric History: Reports: Addiction Endocrine/Metabolic History: Reports: None Hematologic History: Reports: None Immunologic History: Reports: None Oncologic (Cancer) History: Reports: None Dermatologic History: Reports: None - Infectious Disease History Infectious Disease History: Reports: None - Past Surgical History Head Surgeries/Procedures: Reports: Craniotomy HEENT Surgical History: Reports: Adenoidectomy, Oral Surgery, Tonsillectomy GI Surgical History: Reports: Appendectomy, Cholecystectomy, Other (See Below) Female Surgical History: Reports: Hysterectomy Musculoskeletal Surgical History: Reports: Other (See Below) Other Musculoskeletal Surgeries/Procedures:: Left arm pinned Social & Family History - Family History Family Medical History: Noncontributory Cardiac: Reports: High Cholesterol, Hypertension Oncologic: Reports: Breast, Lymphoma - Tobacco Use Smoking Status *Q: Current Every Day Smoker Years of Tobacco use: 15 Packs/Tins Daily: 1 - Caffeine Use Caffeine Use: Reports: None - Recreational Drug Use Recreational Drug Use: No - Living Situation & Occupation Living situation: Reports: , with Significant Other (Girlfriend) 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 Denies: Confusion, Dizziness ED EXAM, HEAD INJURY - Physical Exam Exam: See Below Exam Limited By: No Limitations General Appearance: Alert, WD/WN, Mild Distress Head: Atraumatic, Normocephalic Eyes: Bilateral Eye: EOMI, PERRL Ears: Normal External Exam, Normal Canal, Hearing Grossly Normal, Normal TMs Nose: Normal Inspection, Normal Mucousa, No Blood Throat/Mouth: Normal Inspection, Normal Lips, Normal Teeth, Normal Gums, Normal Oropharynx, Normal Voice, No Airway Compromise Neck: Other (Mild tenderness paraspinous muscle C2-C3 bilaterally no vertebral tenderness) Respiratory: No Respiratory Distress, Lungs Clear, Normal Breath Sounds, No Accessory Muscle Use, Chest Non-Tender Cardiovascular: Normal Peripheral Pulses, Regular Rate, Rhythm, No Edema, No Gallop, No JVD, No Murmur, No Rub GI/Abdominal Exam: Normal Bowel Sounds, Soft, Non-Tender, No Organomegaly, No Distention, No Abnormal Bruit, No Mass Back Exam: Full Range of Motion, Normal Inspection, NT Extremities: Normal Inspection, Normal Range of Motion, Non-Tender, No Pedal Edema, Normal Capillary Refill Neurologic: sand temperer II-XII nml As Tested, No Motor/Sensory Deficits, Alert, Normal Mood/Affect, Oriented x 3. No: Abnormal Gait Skin: Normal Color, Warm/Dry Course - Vital Signs Last Recorded V/S: Last Vital Signs Temp 98.0 F 03/09/19 16:22 Pulse 79 03/09/19 16:22 Resp 19 03/09/19 16:22 BP 129/87 03/09/19 16:22 Pulse Ox 98 03/09/19 16:22 - Orders/Labs/Meds Orders: Active Orders 24 hr Category Date Time Status Sodium Chloride 0.9% [Saline Flush] Med 03/09/19 16:28 Active 10 ml FLUSH ASDIRECTED PRN Saline Lock Insert [OM.PC] Stat Oth 03/09/19 16:28 Ordered Medication Orders Sodium Chloride (Saline Flush) 10 ml FLUSH ASDIRECTED PRN PRN Reason: Keep Vein Open Last Admin: 03/09/19 16:34 Dose: 10 ml Meds: Medications Generic Name Dose Route Start Last Admin Trade Name Freq PRN Reason Stop Dose Admin Sodium Chloride 10 ml 03/09/19 16:28 03/09/19 16:34 Saline Flush FLUSH 10 ml ASDIRECTED PRN Administration Keep Vein Open Discontinued Medications Generic Name Dose Route Start Last Admin Trade Name Freq PRN Reason Stop Dose Admin Diphenhydramine HCl 25 mg 03/09/19 16:27 03/09/19 16:34 Benadryl IVPUSH 03/09/19 16:28 25 mg ONETIME ONE Administration Hydromorphone HCl 1 mg 03/09/19 16:58 03/09/19 17:04 Dilaudid IVPUSH 03/09/19 16:59 1 mg ONETIME ONE Administration Ketorolac Tromethamine 30 mg 03/09/19 16:27 03/09/19 16:34 Toradol IVPUSH 03/09/19 16:28 30 mg ONETIME ONE Administration - Re-Assessments/Exams Free Text/Narrative Re-Assessment/Exam: 03/09/19 17:[address] shows "impression: 1 previous suboccipital craniotomy. #2 no acute intracranial abnormalities appreciated. #3 no significant changes seen from previous study." CT cervical spine shows "impression: #1 mild degenerative change. #2 nothing acute is appreciated on CT study of the cervical spine." Departure - Departure Time of Disposition: 17:34 Disposition: Home, Self-Care 01 Condition: Good Clinical Impression: Head contusion Qualifiers: Encounter type: initial encounter Contusion of head detail: unspecified part of head Qualified Code(s): S00.93XA - Contusion of unspecified part of head, initial encounter Cervical strain Qualifiers: Encounter type: initial encounter Qualified Code(s): S16.1XXA - Strain of muscle, fascia and tendon at neck level, initial encounter - Discharge Information Referrals: Lita Hernández NP [Primary Care Provider] - Forms: ED Department Discharge Additional Instructions: Home, rest, Tylenol or Motrin for pain, return as needed for worsening condition Sepsis Event Note - Evaluation Sepsis Screening Result: No Definite Risk - Focused Exam Vital Signs: Vital Signs Temp Pulse Resp BP Pulse Ox 03/09/19 16:22 98.0 F 79 19 129/87 98 Date Exam was Performed: 03/09/19 Time Exam was Performed: 17:33 - My Orders Last 24 Hours: My Active Orders 03/09/19 16:28 Sodium Chloride 0.9% [Saline Flush] 10 ml FLUSH ASDIRECTED PRN Saline Lock Insert [OM.PC] Stat - Assessment/Plan Last 24 Hours: My Active Orders 03/09/19 16:28 Sodium Chloride 0.9% [Saline Flush] 10 ml FLUSH ASDIRECTED PRN Saline Lock Insert [OM.PC] Stat
[2019-03-09] MEDS ORDERED: HYDROmorphone 1 MG/ML Syringe IVPUSH ONE (16:58)
--- NOTE | 2019-03-09 17:21 | CT ---
CT cervical spine Technique: Multiple axial sections were obtained from above C1 inferiorly to the bottom of T2. Reconstructed sagittal and coronal images were reviewed. Comparison: No prior cervical spine imaging is available. Findings: Moderate disc space narrowing is noted at C5-6 with anterior osteophytes and posterior osteophytes. Mild disc space narrowing is noted at T1-2 with slight anterior osteophytes. Other vertebral body heights are maintained. Previous suboccipital craniotomy is again noted. No fracture is identified. No bony central or bony neural foraminal stenosis is seen. Minimal scattered degenerative change is noted within the apophyseal joints. Impression: 1. Mild degenerative change. 2. Nothing acute is appreciated on CT study of the cervical spine. Diagnostic code #2 This report was dictated in [place] Standard Time
--- NOTE | 2019-03-09 17:21 | CT ---
Head CT Technique: Multiple axial sections through the brain were obtained. Intravenous contrast was not utilized. Comparison: Prior head CT study of 11/28/16. Findings: Ventricles along with basal cisterns and sulci over the convexities appear within normal limits for the patient's age. Suboccipital craniotomy is noted. No abnormal parenchymal densities are seen. No evidence of intracranial hemorrhage. No midline shift or mass effect is seen. Bone window settings were reviewed which show the visualized paranasal sinuses to show nothing acute. Mastoid sinuses show nothing acute. No acute calvarial abnormality is appreciated. Impression: 1. Previous suboccipital craniotomy. 2. No acute intracranial abnormality is appreciated. 3. No significant change is seen from previous study. Diagnostic code #2 This report was dictated in [place] Standard Time
[2019-03-09] MEDS ORDERED: HYDROmorphone 0.5 MG/0.5 ML Syringe IVPUSH ONE (17:39)
[2019-03-09] MEDS ORDERED: Lidocaine 2% Viscous Solution 15 ML Cup PO ONE (17:39)
[2019-03-09] MEDS ORDERED: methylPREDNISolone Sodium Succinate 125 MG/2 ML SDV IVPUSH ONE (17:47)
== END 2019-03-09 18:18 | disposition home or self-care (01) ==
LOC: JD.ED 16:15
DX: S16.1XXA Strain of muscle, fascia and tendon at neck level, initial encounter (principal); S00.93XA Contusion of unspecified part of head, initial encounter; G40.909 Epilepsy, unspecified, not intractable, without status epilepticus; F17.210 Nicotine dependence, cigarettes, uncomplicated; Z88.0 Allergy status to penicillin; Z88.8 Allergy status to other drugs, medicaments and biological substances; Z88.5 Allergy status to narcotic agent; Z88.2 Allergy status to sulfonamides; Z79.899 Other long term (current) drug therapy; V00.311A Fall from snowboard, initial encounter; Y93.23 Activity, snow (alpine) (downhill) skiing, snowboarding, sledding, tobogganing and snow tubing
CPT/HCPCS: 70450; 72125; 96374; 96375; 96376; 99284; A9270; J1170; J1200; J1885; J2930; 99283

== ENCOUNTER 2019-04-04 12:35 | Emergency (ER) | payer MEDICAID ==
[2019-04-04 12:52] VITALS: BP 130/96; PULSE 92
[2019-04-04] MEDS ORDERED: methylPREDNISolone Sodium Succinate 125 MG/2 ML SDV IM ONE (12:53)
--- NOTE | 2019-04-04 12:57 | EDM.PDOC ---
ED HPI GENERAL MEDICAL PROBLEM - General Chief Complaint: Skin Complaint Stated Complaint: SKIN COMPLAINT Time Seen by Provider: 04/04/19 12:52 Source of Information: Reports: Patient History Limitations: Reports: No Limitations - History of Present Illness INITIAL COMMENTS - FREE TEXT/NARRATIVE: Patient is an unfortunate 34-year-old female who presents emergency Department today with complaint of rash. Patient reports that rash started 5 days ago and is progressively worse. She reports that she is taking Benadryl with minimal improvement in symptoms. Patient reports no change in behavior pattern no new products no new medications Right Upper Chest Pain Score (Numeric/FACES): 6 - Related Data Allergies Allergy/AdvReac Type Severity Reaction Status Date / Time amoxicillin [Amoxicillin] Allergy Rash Verified 03/09/19 16:26 ketorolac [From Toradol] Allergy Rash Verified 03/09/19 17:46 metoclopramide HCl Allergy Rash Verified 03/09/19 16:26 [From Reglan] morphine Allergy Rash Verified 03/09/19 16:26 prochlorperazine edisylate Allergy Rash Verified 03/09/19 16:26 [From Compazine] prochlorperazine maleate Allergy Rash Verified 03/09/19 16:26 [From Compazine] Sulfa (Sulfonamide Allergy Rash Verified 03/09/19 16:26 Antibiotics) Home Meds: Home Meds levETIRAcetam [Keppra] 500 mg PO BID 12/03/16 [History] DULoxetine HCl [Cymbalta] 90 mg PO DAILY 09/17/17 [History] Metoprolol Tartrate 50 mg PO DAILY 09/17/17 [History] busPIRone [Buspar] 1 tab PO TID 07/24/18 [History] cloNIDine [Catapres] 0.1 mg PO BID 07/24/18 [History] diphenhydrAMINE HCl [Benadryl] 25 mg PO ASDIRECTED PRN 07/24/18 [History] rOPINIRole [Requip] 1 tab PO DAILY 07/24/18 [History] traZODone HCl [Trazodone HCl] 150 mg PO DAILY 07/24/18 [History] ALPRAZolam [Xanax] 1 mg PO Q4HR PRN 03/09/19 [History] lamoTRIgine [Lamictal] 25 mg PO BID 03/09/19 [History] predniSONE [Prednisone] 50 mg PO DAILY #5 tablet 04/04/19 [Rx] Past Medical History HEENT History: Reports: Impaired Vision Cardiovascular History: Reports: Other (See Below) Other Cardiovascular History: states has ischemic heart dx Respiratory History: Reports: None Gastrointestinal History: Reports: Inflammatory Bowel Disease Other Gastrointestinal History: crohns Genitourinary History: Reports: None Neurological History: Reports: Seizure Other Neuro History: Brain tumor removed. Psychiatric History: Reports: Addiction Endocrine/Metabolic History: Reports: None Hematologic History: Reports: None Immunologic History: Reports: None Oncologic (Cancer) History: Reports: None Dermatologic History: Reports: None - Infectious Disease History Infectious Disease History: Reports: None - Past Surgical History Head Surgeries/Procedures: Reports: Craniotomy HEENT Surgical History: Reports: Adenoidectomy, Oral Surgery, Tonsillectomy GI Surgical History: Reports: Appendectomy, Cholecystectomy, Other (See Below) Female Surgical History: Reports: Hysterectomy Musculoskeletal Surgical History: Reports: Other (See Below) Other Musculoskeletal Surgeries/Procedures:: Left arm pinned Social & Family History - Family History Family Medical History: Noncontributory Cardiac: Reports: High Cholesterol, Hypertension Oncologic: Reports: Breast, Lymphoma - Caffeine Use Caffeine Use: Reports: None - Living Situation & Occupation Living situation: Reports: , with Significant Other (Girlfriend) 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) ED ROS GENERAL - Review of Systems Review Of Systems: See Below Constitutional: Denies: Fever, Chills Skin: Reports: Pruritis, Rash ED EXAM, SKIN/RASH Exam: See Below Exam Limited By: No Limitations General Appearance: Alert, WD/WN, Mild Distress Nose: Normal Inspection, Normal Mucosa, No Blood Throat/Mouth: Normal Inspection, Normal Lips, Normal Teeth, Normal Gums, Normal Oropharynx, Normal Voice, No Airway Compromise Neck: Normal Inspection, Supple, Non-Tender, Full Range of Motion Respiratory/Chest: No Respiratory Distress, Lungs Clear, Normal Breath Sounds, No Accessory Muscle Use, Chest Non-Tender Cardiovascular: Normal Peripheral Pulses, Regular Rate, Rhythm, No Edema, No Gallop, No JVD, No Murmur, No Rub GI/Abdominal: Normal Bowel Sounds, Soft, Non-Tender, No Organomegaly, No Distention, No Abnormal Bruit, No Mass Back Exam: Normal Inspection, Full Range of Motion, NT Extremities: Normal Inspection, Normal Range of Motion, Non-Tender, No Pedal Edema, Normal Capillary Refill Neurological: Alert, Oriented Skin: Warm, Dry, Rash (Urticarial rash to upper chest, back and upper arms bilaterally) Characteristics: Urticarial Associated features: Warmth. No: Tenderness, Swelling, Induration, Scaling Course - Vital Signs Last Recorded V/S: Last Vital Signs Temp 97.4 F 04/04/19 12:49 Pulse 92 04/04/19 12:49 Resp 18 04/04/19 12:49 BP 130/96 H 04/04/19 12:49 Pulse Ox 100 04/04/19 12:49 - Orders/Labs/Meds Orders: Active Orders 24 hr Category Date Time Status methylPREDNISolone Sod Succ [Solu-MEDROL] Med 04/04/19 12:53 Once 125 mg IM ONETIME ONE Departure - Departure Time of Disposition: 12:55 Disposition: Home, Self-Care 01 Clinical Impression: Urticaria - Discharge Information Prescriptions: predniSONE [Prednisone] 50 mg PO DAILY #5 tablet Referrals: Lita Hernández [employer]PERATOR HELPER [Primary Care Provider] - Additional Instructions: Home, rest, Benadryl 25 mg by mouth every 4 hours for 24 hours then as needed, if your symptoms do not improve in the next 48-72 hours you need to follow-up with your PCP and consider referral to dermatology, return as needed for worsening condition Sepsis Event Note - Evaluation Sepsis Screening Result: No Definite Risk - Focused Exam Vital Signs: Vital Signs Temp Pulse Resp BP Pulse Ox 04/04/19 12:49 97.4 F 92 18 130/96 H 100 Date Exam was Performed: 04/04/19 Time Exam was Performed: 12:53 - My Orders Last 24 Hours: My Active Orders 04/04/19 12:53 methylPREDNISolone Sod Succ [Solu-MEDROL] 125 mg IM ONETIME ONE - Assessment/Plan Last 24 Hours: My Active Orders 04/04/19 12:53 methylPREDNISolone Sod Succ [Solu-MEDROL] 125 mg IM ONETIME ONE
== END 2019-04-04 13:20 | disposition home or self-care (01) ==
LOC: JD.ED 12:35
DX: L50.9 Urticaria, unspecified (principal); Z88.1 Allergy status to other antibiotic agents; Z88.5 Allergy status to narcotic agent; Z88.6 Allergy status to analgesic agent; Z88.2 Allergy status to sulfonamides; Z79.899 Other long term (current) drug therapy; Z98.890 Other specified postprocedural states; Z90.49 Acquired absence of other specified parts of digestive tract; Z90.710 Acquired absence of both cervix and uterus
CPT/HCPCS: 96372; 99282; J2930

== ENCOUNTER 2019-04-11 22:47 | Emergency (ER) | payer MEDICAID ==
[2019-04-11 22:55] VITALS: BP 144/99; PULSE 108
--- NOTE | 2019-04-12 00:12 | EDM.PDOC ---
ED HPI GENERAL MEDICAL PROBLEM - General Chief Complaint: Skin Complaint Stated Complaint: rash Time Seen by Provider: 04/11/19 23:18 Source of Information: Reports: Patient History Limitations: Reports: No Limitations - History of Present Illness INITIAL COMMENTS - FREE TEXT/NARRATIVE: This is a 34-year-old female. She says for the last couple of weeks she has been having rash and she has this sensation on her entire right side of her body of this gnawing deep type pain. It does not seem to be on the left side of her body. Does have a history of seizures and she was recently taken off of Lamictal and put on Keppra because she had a breakthrough seizure. She was seen here a few days ago for what was thought to be hives due to a rash that seemed to be on the neck and chest but now the rash tonight seems to be on her right arm only. The thing that disturbs her the most is this feeling on the entire right side of her body of this pain. 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 She denies any history of heavy metal exposure. She has had no fever, no nausea and vomiting or diarrhea and no cough or viral type syndrome. She did go see her family doctor and they senthil some blood on her but they did not find anything abnormal. No history of MS or autoimmune problems or fibromyalgia. She does not really exhibit the symptoms of serotonin syndrome but she is on 4 medications that increase that possibility including Cymbalta trazodone and buspirone. After going over a my read list of possibilities we have nothing. Right Generalized Pain Score (Numeric/FACES): 8 - Related Data Allergies Allergy/AdvReac Type Severity Reaction Status Date / Time amoxicillin [Amoxicillin] Allergy Rash Verified 04/11/19 22:55 ketorolac [From Toradol] Allergy Rash Verified 04/11/19 22:55 metoclopramide HCl Allergy Rash Verified 04/11/19 22:55 [From Reglan] morphine Allergy Rash Verified 04/11/19 22:55 prochlorperazine edisylate Allergy Rash Verified 04/11/19 22:55 [From Compazine] prochlorperazine maleate Allergy Rash Verified 04/11/19 22:55 [From Compazine] Sulfa (Sulfonamide Allergy Rash Verified 04/11/19 22:55 Antibiotics) Home Meds: Home Meds levETIRAcetam [Keppra] 500 mg PO BID 12/03/16 [History] DULoxetine HCl [Cymbalta] 90 mg PO DAILY 09/17/17 [History] Metoprolol Tartrate 50 mg PO DAILY 09/17/17 [History] busPIRone [Buspar] 1 tab PO TID 07/24/18 [History] cloNIDine [Catapres] 0.1 mg PO BID 07/24/18 [History] diphenhydrAMINE HCl [Benadryl] 25 mg PO ASDIRECTED PRN 07/24/18 [History] rOPINIRole [Requip] 1 tab PO DAILY 07/24/18 [History] traZODone HCl [Trazodone HCl] 150 mg PO DAILY 07/24/18 [History] ALPRAZolam [Xanax] 1 mg PO Q4HR PRN 03/09/19 [History] Past Medical History HEENT History: Reports: Impaired Vision Cardiovascular History: Reports: Other (See Below) Other Cardiovascular History: states has ischemic heart dx Respiratory History: Reports: None Gastrointestinal History: Reports: Inflammatory Bowel Disease Other Gastrointestinal History: crohns Genitourinary History: Reports: None MARINE CARGO SPECIALIST History: Reports: Other (See Below) Other MARINE CARGO SPECIALIST History: hysterectomy Neurological History: Reports: Seizure Other Neuro History: Brain tumor removed. Psychiatric History: Reports: Addiction Endocrine/Metabolic History: Reports: None Hematologic History: Reports: None Immunologic History: Reports: None Oncologic (Cancer) History: Reports: None Dermatologic History: Reports: None - Infectious Disease History Infectious Disease History: Reports: Chicken Pox - Past Surgical History Head Surgeries/Procedures: Reports: Craniotomy HEENT Surgical History: Reports: Adenoidectomy, Oral Surgery, Tonsillectomy GI Surgical History: Reports: Appendectomy, Cholecystectomy, Other (See Below) Female Surgical History: Reports: Hysterectomy Musculoskeletal Surgical History: Reports: Other (See Below) Other Musculoskeletal Surgeries/Procedures:: Left arm pinned Social & Family History - Family History Family Medical History: Noncontributory Cardiac: Reports: High Cholesterol, Hypertension Oncologic: Reports: Breast, Lymphoma - Tobacco Use Smoking Status *Q: Current Every Day Smoker Years of Tobacco use: 15 Packs/Tins Daily: 0.5 - Caffeine Use Caffeine Use: Reports: Coffee - Recreational Drug Use Recreational Drug Use: No - Living Situation & Occupation Living situation: Reports: , with Significant Other (Girlfriend) 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 Denies: Fever, Chills, Night Sweats , Diaphoresis HEENT: Denies: Ear Pain, Throat Pain, Throat Swelling Respiratory: Denies: Shortness of Breath, Wheezing, Cough Cardiovascular: Denies: Chest Pain Endocrine: Reports: No Symptoms GI/Abdominal: Denies: Abdominal Pain, Diarrhea, Nausea, Vomiting : Reports: No Symptoms Musculoskeletal: Reports: Other (The entire right side of her body has this gnawing deep pain but is not on the left side of her body) Skin: Reports: Rash Neurological: Denies: Headache, Numbness, Paresthesia, Tingling, Trouble Speaking, Difficulty Walking, Weakness Psychiatric: Reports: Anxiety, Mood Lability Hematologic/Lymphatic: Reports: No Symptoms ED EXAM, SKIN/RASH Exam: See Below Exam Limited By: No Limitations General Appearance: Alert, WD/WN, No Apparent Distress Eye Exam: Bilateral Eye: Normal Inspection Ears: Normal External Exam, Normal Canal, Normal TMs Nose: Normal Inspection. No: Nasal Drainage, Clear Rhinorrhea Throat/Mouth: Normal Inspection, Normal Lips, Normal Voice, No Airway Compromise Head: Normocephalic Neck: Supple, Full Range of Motion Respiratory/Chest: No Respiratory Distress, Lungs Clear, Normal Breath Sounds Cardiovascular: Regular Rate, Rhythm, No Murmur, Tachycardia GI/Abdominal: Soft, Other (She denies any abdominal pain) Back Exam: Normal Inspection, Full Range of Motion, Other (No obvious rash or urticaria noted) Extremities: Normal Inspection, Normal Range of Motion, Other (Posterior upper arm she has an erythematous faint patch that is blanchable but it does not look like urticaria) Neurological: Alert, Oriented, Other (She complains of a gnawing deep pain on the right side of her body but she cannot describe it any better than that). No : Sensory/Motor Deficit Psychiatric: Normal Affect, Normal Mood Skin: Warm, Dry Course - Vital Signs Last Recorded V/S: Last Vital Signs Temp 98.8 F 04/11/19 22:54 Pulse 108 H 04/11/19 22:54 Resp 20 04/11/19 22:54 BP 144/99 H 04/11/19 22:54 Pulse Ox 97 04/11/19 22:54 - Orders/Labs/Meds Labs: Laboratory Tests 04/11/19 04/11/19 Range/Units 23:45 23:45 WBC 9.74 (3.98-10.04) K/mm3 RBC 4.83 (3.98-5.22) M/mm3 Hgb 14.7 D (11.2-15.7) gm/dl Hct 43.2 (34.1-44.9) % MCV 89.4 D (79.4-94.8) fl MCH 30.4 (25.6-32.2) pg MCHC 34.0 (32.2-35.5) g/dl RDW Std Deviation 40.2 (36.4-46.3) fL Plt Count 254 (182-369) K/mm3 MPV 8.8 L (9.4-12.3) fl Neut % (Auto) 53.4 (34.0-71.1) % Lymph % (Auto) 34.0 (19.3-51.7) % Blaine % (Auto) 7.9 (4.7-12.5) % Eos % (Auto) 3.5 (0.7-5.8) Baso % (Auto) 0.5 (0.1-1.2) % Neut # (Auto) 5.20 (1.56-6.13) K/mm3 Lymph # (Auto) 3.31 (1.18-3.74) K/mm3 Blaine # (Auto) 0.77 H (0.24-0.36) K/mm3 Eos # (Auto) 0.34 (0.04-0.36) K/mm3 Baso # (Auto) 0.05 (0.01-0.08) K/mm3 Sodium 137 (136-145) mEq/L Potassium 4.3 (3.5-5.1) mEq/L Chloride 100 (98-107) mEq/L Carbon Dioxide 28 (21-32) mEq/L Anion Gap 13.3 (5-15) BUN 16 (7-18) mg/dL Creatinine 0.9 (0.55-1.02) mg/dL Est Cr Clr Drug Dosing 73.55 mL/min Estimated GFR (MDRD) > 60 (>60) mL/min BUN/Creatinine Ratio 17.8 (14-18) Glucose 89 (74-106) mg/dL Calcium 8.3 L (8.5-10.1) mg/dL Total Bilirubin 0.2 (0.2-1.0) mg/dL AST 7 L (15-37) U/L ALT 22 (14-59) U/L Alkaline Phosphatase 70 (46-116) U/L Creatine Kinase 42 (26-192) U/L C-Reactive Protein < 0.2 (<1.0) mg/dL Total Protein 7.2 (6.4-8.2) g/dl Albumin 3.9 (3.4-5.0) g/dl Globulin 3.3 gm/dL Albumin/Globulin Ratio 1.2 (1-2) - Re-Assessments/Exams Free Text/Narrative Re-Assessment/Exam: 04/12/19 00:36 Spoke to the patient at length regarding her symptoms. I do not know what is causing them. I encouraged her to call her neurologist and talk to him regarding the Cymbalta trazodone and buspirone interacting and may be causing some problems even though she has been on it for years as far as a serotonin syndrome. Also the fact that MS and autoimmune and fibromyalgia can cause some symptoms like this without a rash. So I encouraged her to call the neurologist as well as her family doctor and maybe even see an armoring machine operator. I suggested she stop taking the Benadryl because it can cause lack of energy and various other symptoms and maybe start taking some Pepcid every day to help with the rash if that really an allergic problem. Departure - Departure Time of Disposition: 00:37 Disposition: Home, Self-Care 01 Condition: Fair Clinical Impression: Rash, Pain - Discharge Information *PRESCRIPTION DRUG MONITORING PROGRAM REVIEWED*: Not Applicable *COPY OF PRESCRIPTION DRUG MONITORING REPORT IN PATIENT LIZ: Not Applicable Referrals: Lita Hernández NP [Primary Care Provider] - Forms: ED Department Discharge Additional Instructions: Please call your neurologist as well as your family doctor regarding your symptoms of that deep pain in the right side of your body, consider multiple sclerosis or autoimmune problem and may be even fibromyalgia, also consider the possibility of drug interactions especially with Cymbalta trazodone and buspirone even though you have been on them for years, I would stop the Benadryl completely since it has a potential interaction with your medications to cause side effects and start taking some Pepcid 40 mg a day since this medicine does not seem to interact with your daily medications, return to the ER as needed Sepsis Event Note - Evaluation Sepsis Screening Result: No Definite Risk - Focused Exam Vital Signs: Vital Signs Temp Pulse Resp BP Pulse Ox 04/11/19 22:54 98.8 F 108 H 20 144/99 H 97 Date Exam was Performed: 04/12/19 Time Exam was Performed: 00:36
== END 2019-04-12 00:49 | disposition home or self-care (01) ==
LOC: JD.ED 22:47
DX: R21 Rash and other nonspecific skin eruption (principal); R52 Pain, unspecified; R56.9 Unspecified convulsions; F17.210 Nicotine dependence, cigarettes, uncomplicated; Z88.1 Allergy status to other antibiotic agents; Z88.6 Allergy status to analgesic agent; Z88.5 Allergy status to narcotic agent; Z88.2 Allergy status to sulfonamides; Z88.8 Allergy status to other drugs, medicaments and biological substances; Z79.899 Other long term (current) drug therapy; Z90.49 Acquired absence of other specified parts of digestive tract; Z90.710 Acquired absence of both cervix and uterus
CPT/HCPCS: 36415; 80053; 82550; 85025; 86140; 99281; 99283

== ENCOUNTER 2019-07-13 14:43 | Emergency (ER) | payer MEDICAID ==
[2019-07-13 15:03] VITALS: BP 120/96; PULSE 94
[2019-07-13] MEDS ORDERED: HYDROmorphone 0.5 MG/0.5 ML Syringe IM ONE (15:56)
--- NOTE | 2019-07-13 16:00 | EDM.PDOC ---
ED HPI GENERAL MEDICAL PROBLEM - General Chief Complaint: Upper Extremity Injury/Pain Stated Complaint: L ARM INJURY Time Seen by Provider: 07/13/19 15:30 Source of Information: Reports: Patient History Limitations: Reports: No Limitations - History of Present Illness INITIAL COMMENTS - FREE TEXT/NARRATIVE: Patient is a 34-year-old female who presents with complaints of left shoulder pain. She states that around 11:00 or noon today she was getting into her truck in her shoe got caught. She reached up to catch herself with a grab bar and felt a pop in her left shoulder. Since that time she has been experiencing significant pain with movement. She also complains of some tingling to the extremity. She took an Aleve around noon and then a Ethel shortly thereafter. She states this did help her pain "a little ". She has no history of previous injury to this shoulder. She states she has a prescription for Ethel 3 times daily for her chronic back pain. Left Shoulder Pain Score (Numeric/FACES): 8 - Related Data Allergies Allergy/AdvReac Type Severity Reaction Status Date / Time amoxicillin [Amoxicillin] Allergy Rash Verified 07/13/19 15:04 ketorolac [From Toradol] Allergy Rash Verified 07/13/19 15:04 metoclopramide HCl Allergy Rash Verified 07/13/19 15:04 [From Reglan] morphine Allergy Rash Verified 07/13/19 15:04 prochlorperazine edisylate Allergy Rash Verified 07/13/19 15:04 [From Compazine] prochlorperazine maleate Allergy Rash Verified 07/13/19 15:04 [From Compazine] Sulfa (Sulfonamide Allergy Rash Verified 07/13/19 15:04 Antibiotics) Home Meds: Home Meds levETIRAcetam [Keppra] 500 mg PO BID 12/03/16 [History] DULoxetine HCl [Cymbalta] 90 mg PO DAILY 09/17/17 [History] Metoprolol Tartrate 50 mg PO DAILY 09/17/17 [History] diphenhydrAMINE HCL [Benadryl] 25 mg PO ASDIRECTED PRN 07/24/18 [History] rOPINIRole [Requip] 1 tab PO DAILY 07/24/18 [History] traZODone HCl [Trazodone HCl] 150 mg PO DAILY 07/24/18 [History] ALPRAZolam [Xanax] 1 mg PO Q4HR PRN 03/09/19 [History] Acetaminophen/HYDROcodone [Ethel 325-5 MG] 1 tab PO TID 07/13/19 [History] amLODIPine [Norvasc] 5 mg PO DAILY 07/13/19 [History] Past Medical History HEENT History: Reports: Impaired Vision Cardiovascular History: Reports: Hypertension, Other (See Below) Other Cardiovascular History: states has ischemic heart dx Respiratory History: Reports: None Gastrointestinal History: Reports: Inflammatory Bowel Disease Other Gastrointestinal History: crohns Genitourinary History: Reports: None SOLVENT MIXER History: Reports: Other (See Below) Other SOLVENT MIXER History: hysterectomy Neurological History: Reports: Seizure Other Neuro History: Brain tumor removed. Psychiatric History: Reports: Addiction, Anxiety, Depression Endocrine/Metabolic History: Reports: None Hematologic History: Reports: None Immunologic History: Reports: None Oncologic (Cancer) History: Reports: None Dermatologic History: Reports: None - Infectious Disease History Infectious Disease History: Reports: Chicken Pox - Past Surgical History Head Surgeries/Procedures: Reports: Craniotomy HEENT Surgical History: Reports: Adenoidectomy, Oral Surgery, Tonsillectomy GI Surgical History: Reports: Appendectomy, Cholecystectomy, Other (See Below) Female Surgical History: Reports: Hysterectomy Musculoskeletal Surgical History: Reports: Other (See Below) Other Musculoskeletal Surgeries/Procedures:: Left arm pinned Social & Family History - Family History Family Medical History: Noncontributory Cardiac: Reports: High Cholesterol, Hypertension Oncologic: Reports: Breast, Lymphoma - Tobacco Use Smoking Status *Q: Current Every Day Smoker Years of Tobacco use: 15 Packs/Tins Daily: 0.5 - Caffeine Use Caffeine Use: Reports: Coffee - Recreational Drug Use Recreational Drug Use: No - Living Situation & Occupation Living situation: Reports: , with Significant Other (Girlfriend) 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 ED EXAM, GENERAL - Physical Exam Exam: See Below Exam Limited By: No Limitations General Appearance: Alert, WD/WN, No Apparent Distress Respiratory/Chest: No Respiratory Distress, Lungs Clear, Normal Breath Sounds, No Accessory Muscle Use, Chest Non-Tender Cardiovascular: Normal Peripheral Pulses, Regular Rate, Rhythm, No Edema, No Gallop, No JVD, No Murmur, No Rub Extremities: Normal Inspection, Other (Slight tenderness to anterior palpation of the left shoulder. Limited range of motion due to pain. CMS intact to the left upper extremity.) Neurological: Alert, Oriented, CN II-XII Intact, Normal Cognition, Normal Gait, Normal Reflexes, No Motor/Sensory Deficits Psychiatric: Normal Affect, Normal Mood Skin Exam: Warm, Dry, Intact, Normal Color, No Rash Course - Vital Signs Last Recorded V/S: Last Vital Signs Temp 98.8 F 07/13/19 15:00 Pulse 94 07/13/19 15:00 Resp 19 07/13/19 15:00 BP 120/96 H 07/13/19 15:00 Pulse Ox 98 07/13/19 15:00 - Orders/Labs/Meds Meds: Medications Discontinued Medications Generic Name Dose Route Start Last Admin Trade Name Freq PRN Reason Stop Dose Admin Hydromorphone HCl 1 mg 07/13/19 15:56 07/13/19 16:05 Dilaudid IM 07/13/19 15:57 1 mg ONETIME ONE Administration - Re-Assessments/Exams Free Text/Narrative Re-Assessment/Exam: 07/13/19 17:08 X-ray of the shoulder was negative for any acute abnormalities. Feel is likely she strained the shoulder, however it is also possibility that she tore a ligament. We will give her a sling and recommend that she do range of motion exercises as tolerated. If she is not having improvement in her symptoms over the next week, I recommend that she follow-up with orthopedist, Dr. Burden. Discharge instructions as documented. Departure - Departure Time of Disposition: 17:08 Disposition: Home, Self-Care 01 Condition: Good Clinical Impression: Shoulder pain Qualifiers: Chronicity: acute Laterality: left Qualified Code(s): M25.512 - Pain in left shoulder - Discharge Information *PRESCRIPTION DRUG MONITORING PROGRAM REVIEWED*: No *COPY OF PRESCRIPTION DRUG MONITORING REPORT IN PATIENT LIZ: No Instructions: Shoulder Pain, [id number] Referrals: Lita Hernández NP [Primary Care Provider] - Aram Burden MD [Physician] - Forms: ED Department Discharge Additional Instructions: You were seen in the emergency department today for left shoulder pain. An x- ray was done and found to be normal. As we discussed, that she strained the shoulder, however, it is also possibility that you may have torn a ligament. You have been provided with a sling. Recommend that she wear this for comfort. You should remove the sling a few times a day and do gentle range of motion exercises as tolerated to keep the joint loose and prevent frozen shoulder. You may use ice intermittently for the next few days and then switch to heat. You may use [id number] Tylenol or ibuprofen as needed for pain. If you are still experiencing significant pain after approximately 1 week, recommend that you follow-up with orthopedist, Dr. Burden. Return to the ER as needed. Sepsis Event Note - Evaluation Sepsis Screening Result: No Definite Risk - Focused Exam Vital Signs: Vital Signs Temp Pulse Resp BP Pulse Ox 07/13/19 15:00 98.8 F 94 19 120/96 H 98 Date Exam was Performed: 07/13/19 Time Exam was Performed: 17:08
--- NOTE | 2019-07-13 16:26 | CR ---
Left shoulder: 4 views left shoulder were obtained. Comparison: No previous shoulder study. Glenohumeral joint and acromioclavicular joint appears within normal limits. No fracture or other bony abnormality is seen. Impression: 1. No abnormality is identified on left shoulder study. Diagnostic code #1 This report was dictated in MDT
== END 2019-07-13 17:20 | disposition home or self-care (01) ==
LOC: JD.ED 14:43
DX: M25.512 Pain in left shoulder (principal); I10 Essential (primary) hypertension; F41.9 Anxiety disorder, unspecified; F32.9 Major depressive disorder, single episode, unspecified; I25.9 Chronic ischemic heart disease, unspecified; F17.210 Nicotine dependence, cigarettes, uncomplicated; Z88.0 Allergy status to penicillin; Z88.6 Allergy status to analgesic agent; Z88.8 Allergy status to other drugs, medicaments and biological substances; Z88.2 Allergy status to sulfonamides; Z79.899 Other long term (current) drug therapy; Z88.5 Allergy status to narcotic agent
CPT/HCPCS: 73030; 96372; 99283; J1170

== ENCOUNTER 2019-08-10 17:27 | Emergency (ER) | payer MEDICAID ==
[2019-08-10 17:38] VITALS: BP 137/93; PULSE 101
[2019-08-10] MEDS ORDERED: Sodium Chloride 0.9% 10 ML Syringe FLUSH PRN (17:56)
[2019-08-10] MEDS ORDERED: HYDROmorphone 0.5 MG/0.5 ML Syringe IVPUSH ONE ×2 (18:03→19:25)
[2019-08-10] MEDS ORDERED: Ondansetron 4 MG/2 ML SDV IVPUSH ONE (18:03)
[2019-08-10] MEDS ORDERED: Sodium Chloride 0.9% 1,000 ML IV ONE (18:06)
--- NOTE | 2019-08-10 18:09 | EDM.PDOC ---
ED HPI GENERAL MEDICAL PROBLEM - General Chief Complaint: Abdominal Pain Stated Complaint: VOMITING/ABDOMINAL PAIN Time Seen by Provider: 08/10/19 17:34 Source of Information: Reports: Patient, RN Notes Reviewed History Limitations: Reports: No Limitations - History of Present Illness INITIAL COMMENTS - FREE TEXT/NARRATIVE: Patient is a 34-year-old female who presents to the ED for the evaluation of her nausea/vomiting and abdominal pain. The patient states she does have a history of Crohn's disease, and for the last week she notes that her symptoms have been worsening. She believes that she is having a flare of her Crohn's, as this is happened in times past when she gets sick. She has been having nausea and vomiting for last 3 days, not been able to keep much down for food or fluids. She is having some epigastric pain, and this has been rated an 8 out of 10. She also is having some bloody stools, which is common place for her when she has her Crohn's flares. The patient is complaining of an allover hive-like body rash, that is also commonplace when she has her Crohn's flares. Patient denies any dizziness with standing or position changes, but has feel overly fatigued due to not being able to keep down much for food or fluids. Patient does have a prescription for Zofran, and has been taking this at home but it does not seem to be helping the patient notes that she has had her gallbladder taken out, appendix taken out, and her uterus taken out. The patient denies any sort of fevers or chills, cough/shortness of breath, or any chest pain. She further denies any urinary issues as well. Patient states that she does have an appointment with her primary care provider tomorrow. Abdomen Pain Score (Numeric/FACES): 8 - Related Data Allergies Allergy/AdvReac Type Severity Reaction Status Date / Time amoxicillin [Amoxicillin] Allergy Rash Verified 08/10/19 17:38 metoclopramide HCl Allergy Rash Verified 08/10/19 17:38 [From Reglan] morphine Allergy Rash Verified 08/10/19 17:38 prochlorperazine edisylate Allergy Rash Verified 08/10/19 17:38 [From Compazine] prochlorperazine maleate Allergy Rash Verified 08/10/19 17:38 [From Compazine] Sulfa (Sulfonamide Allergy Rash Verified 08/10/19 17:38 Antibiotics) Home Meds: Home Meds levETIRAcetam [Keppra] 500 mg PO BID 12/03/16 [History] DULoxetine HCl [Cymbalta] 90 mg PO DAILY 09/17/17 [History] Metoprolol Tartrate 50 mg PO DAILY 09/17/17 [History] diphenhydrAMINE HCL [Benadryl] 25 mg PO ASDIRECTED PRN 07/24/18 [History] rOPINIRole [Requip] 1 tab PO DAILY 07/24/18 [History] traZODone HCl [Trazodone HCl] 150 mg PO DAILY 07/24/18 [History] ALPRAZolam [Xanax] 1 mg PO Q4HR PRN 03/09/19 [History] Acetaminophen/HYDROcodone [[place] 325-5 MG] 1 tab PO TID 07/13/19 [History] amLODIPine [Norvasc] 5 mg PO DAILY 07/13/19 [History] predniSONE 20 mg PO ASDIRECTED #15 tab 08/10/19 [Rx] Past Medical History HEENT History: Reports: Impaired Vision Cardiovascular History: Reports: Hypertension, Other (See Below) Other Cardiovascular History: states has ischemic heart dx Gastrointestinal History: Reports: Inflammatory Bowel Disease Other Gastrointestinal History: crohns 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 Psychiatric History: Reports: Addiction, Anxiety, Depression - Infectious Disease History Infectious Disease History: Reports: Chicken Pox - Past Surgical History Head Surgeries/Procedures: Reports: Craniotomy HEENT Surgical History: Reports: Adenoidectomy, Oral Surgery, Tonsillectomy GI Surgical History: Reports: Appendectomy, Cholecystectomy Female Surgical History: Reports: Hysterectomy Musculoskeletal Surgical History: Reports: Other (See Below) Other Musculoskeletal Surgeries/Procedures:: Left arm pinned Social & Family History - Family History Family Medical History: Noncontributory Cardiac: Reports: High Cholesterol, Hypertension Oncologic: Reports: Breast, Lymphoma - Tobacco Use Smoking Status *Q: Current Every Day Smoker Years of Tobacco use: 15 Packs/Tins Daily: 0.5 - Caffeine Use Caffeine Use: Reports: None - Recreational Drug Use Recreational Drug Use: No - Living Situation & Occupation Living situation: Reports: , with Significant Other (Girlfriend) 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 ED EXAM, GI/ABD - Physical Exam Exam: See Below Exam Limited By: No Limitations General Appearance: Alert, WD/WN, No Apparent Distress Eyes: Bilateral: Normal Appearance Ears: Normal External Exam Nose: Normal Inspection Throat/Mouth: Normal Inspection Head: Atraumatic, Normocephalic Neck: Normal Inspection Respiratory/Chest: No Respiratory Distress, Lungs Clear, Normal Breath Sounds, No Accessory Muscle Use, Chest Non-Tender Cardiovascular: Normal Peripheral Pulses, Regular Rate, Rhythm, No Murmur GI/Abdominal Exam: Normal Bowel Sounds, Soft, No Distention, No Mass, Tender ( upper abdomen mainly) Extremities: Normal Inspection, Normal Capillary Refill Neurological: Alert, Oriented, Normal Cognition, No Motor/Sensory Deficits Psychiatric: Normal Affect, Normal Mood Skin Exam: Warm, Dry, Intact, Normal Color, Rash (Erythematous, raised, papular- like lesions, this is similar to rash that she has had in the past where she is had a Crohn's flare.) Course - Vital Signs Last Recorded V/S: Last Vital Signs Temp 98.2 F 08/10/19 17:33 Pulse 101 H 08/10/19 17:33 Resp 16 08/10/19 17:33 BP 137/93 H 08/10/19 17:33 Pulse Ox 97 08/10/19 17:33 Orthostatic Blood Pressure [ 122/90 Standing] Orthostatic Blood Pressure [ 120/85 Sitting] Orthostatic Blood Pressure [ 118/77 Supine] - Orders/Labs/Meds Orders: Active Orders 24 hr Category Date Time Status Oral Fluid Challenge [RC] ASDIRECTED Care 08/10/19 19:29 Ordered Orthostatic Vital Signs [RC] ASDIRECTED Care 08/10/19 17:56 Ordered Peripheral IV Care [RC] . DIRECTED Care 08/10/19 17:57 Ordered Sodium Chloride 0.9% [Saline Flush] Med 08/10/19 17:56 Ordered 10 ml FLUSH ASDIRECTED PRN Peripheral IV Insertion Adult [OM.PC] Routine Oth 08/10/19 17:56 Ordered Medication Orders Sodium Chloride (Saline Flush) 10 ml FLUSH ASDIRECTED PRN PRN Reason: Keep Vein Open Last Admin: 08/10/19 18:43 Dose: 10 ml Labs: Laboratory Tests 08/10/19 08/10/19 08/10/19 Range/Units 18:05 18:05 18:05 WBC 9.08 (3.98-10.04) K/mm3 RBC 4.73 (3.98-5.22) M/mm3 Hgb 14.4 (11.2-15.7) gm/dl Hct 42.0 (34.1-44.9) % MCV 88.8 (79.4-94.8) fl MCH 30.4 (25.6-32.2) pg MCHC 34.3 (32.2-35.5) g/dl RDW Std Deviation 40.1 (36.4-46.3) fL Plt Count 237 (182-369) K/mm3 MPV 9.3 L (9.4-12.3) fl Neut % (Auto) 51.7 (34.0-71.1) % Lymph % (Auto) 34.3 (19.3-51.7) % [place] % (Auto) 9.9 (4.7-12.5) % Eos % (Auto) 3.1 (0.7-5.8) Baso % (Auto) 0.3 (0.1-1.2) % Neut # (Auto) 4.70 (1.56-6.13) K/mm3 Lymph # (Auto) 3.11 (1.18-3.74) K/mm3 [place] # (Auto) 0.90 H (0.24-0.36) K/mm3 Eos # (Auto) 0.28 (0.04-0.36) K/mm3 Baso # (Auto) 0.03 (0.01-0.08) K/mm3 ESR 10 (0-20) mm/hr Sodium 140 (136-145) mEq/L Potassium 4.2 (3.5-5.1) mEq/L Chloride 104 (98-107) mEq/L Carbon Dioxide 27 (21-32) mEq/L Anion Gap 13.2 (5-15) BUN 9 (7-18) mg/dL Creatinine 1.0 (0.55-1.02) mg/dL Est Cr Clr Drug Dosing 66.19 mL/min Estimated GFR (MDRD) > 60 (>60) mL/min BUN/Creatinine Ratio 9.0 L (14-18) Glucose 87 (74-106) mg/dL Calcium 9.1 (8.5-10.1) mg/dL Total Bilirubin 0.2 (0.2-1.0) mg/dL AST 15 (15-37) U/L ALT 69 H (14-59) U/L Alkaline Phosphatase 81 (46-116) U/L C-Reactive Protein <0.2 (<1.0) mg/dL Total Protein 7.0 (6.4-8.2) g/dl Albumin 3.8 (3.4-5.0) g/dl Globulin 3.2 gm/dL Albumin/Globulin Ratio 1.2 (1-2) Meds: Medications Generic Name Dose Route Start Last Admin Trade Name Freq PRN Reason Stop Dose Admin Sodium Chloride 10 ml 08/10/19 17:56 08/10/19 18:43 Saline Flush FLUSH 10 ml ASDIRECTED PRN Administration Keep Vein Open Discontinued Medications Generic Name Dose Route Start Last Admin Trade Name Freq PRN Reason Stop Dose Admin Diphenhydramine HCl 25 mg 08/10/19 18:47 08/10/19 18:52 Benadryl IVPUSH 08/10/19 18:48 25 mg ONETIME ONE Administration Fentanyl 12 mcg 08/10/19 19:48 Duragesic TRDERM 08/10/19 19:49 ONETIME ONE Hydromorphone HCl 0.5 mg 08/10/19 18:03 08/10/19 18:43 Dilaudid IVPUSH 08/10/19 18:04 0.5 mg ONETIME ONE Administration Hydromorphone HCl 0.5 mg 08/10/19 19:25 08/10/19 19:37 Dilaudid IVPUSH 08/10/19 19:26 0.5 mg ONETIME ONE Administration Sodium Chloride 1,000 mls @ 999 mls/hr 08/10/19 18:06 08/10/19 18:43 Normal Saline IV 08/10/19 19:06 999 mls/hr ONETIME ONE Administration Promethazine HCl 25 mg/ Sodium 51 mls @ 100 mls/hr 08/10/19 19:15 08/10/19 19 :22 Chloride IV 08/10/19 19:45 100 mls/hr ONETIME ONE Administration Magnesium Citrate 296 ml 08/10/19 19:21 08/10/19 19:39 Citrate Of Magnesia PO 08/10/19 19:22 296 ml ONETIME ONE Administration Ondansetron HCl 4 mg 08/10/19 18:03 08/10/19 18:43 Zofran IVPUSH 08/10/19 18:04 4 mg ONETIME ONE Administration - Re-Assessments/Exams Free Text/Narrative Re-Assessment/Exam: 08/10/19 18:10 Patient presents to the ED for the evaluation of her possible Crohn's flareup. Have ordered KUB x-ray, and basic lab work with some IV fluids, pain medication and nausea medications for initial management. 08/10/19 19:23 Patient has been having some ongoing nausea, and request something for the rash , I have ordered 25 mg of Benadryl, and 25 mg IV Phenergan for management of this. Labs have started to result, CBC is essentially within normal limits, metabolic panel is essentially within normal limits, CRP is undetectably low, still waiting on sed rate. But due to the patient's symptoms it is likely that she has a flare of her Crohn's and we will treat her with prednisone on outpatient basis. The patient's KUB x-ray did demonstrate quite a bit of stool throughout the entire colon, she will be given a bottle of mag citrate to take at home as well. 08/10/19 19:55 Discussion with the patient reveals that she sometimes get an upset stomach from pain medications, and she usually receives a "pain patch" to get her through the few days where she has a lot of pain d/t the Crohn's, I did discuss this matter with Dr. Golden and he thinks that the lowest dose of a fentanyl patch would probably help her with her pain. I have ordered a 12mcg fentanyl patch for pain relief, this will be applied before the patient leaves, and she will be directed to have this taken off in 72 hours. Departure - Departure Time of Disposition: 19:24 Disposition: Home, Self-Care 01 Condition: Good Clinical Impression: Exacerbation of Crohn's disease Qualifiers: Digestive disease complication type: with rectal bleeding Qualified Code(s): K50.911 - Crohn's disease, unspecified, with rectal bleeding - Discharge Information *PRESCRIPTION DRUG MONITORING PROGRAM REVIEWED*: Yes *COPY OF PRESCRIPTION DRUG MONITORING REPORT IN PATIENT LIZ: No Prescriptions: predniSONE 20 mg PO ASDIRECTED #15 tab Instructions: Crohn's Disease Referrals: PCP,None [Primary Care Provider] - Forms: ED Department Discharge Additional Instructions: You were evaluated in the ER today regarding your bloody stools and exacerbation of your Crohn's disease. You were given some IV fluids, IV medications, and had some labs and imaging done at today's visit. Laboratory evaluation is essentially within normal limits, your abdomen x-ray did demonstrate quite a diffuse amount of stool throughout the colon, which is suggestive of slight constipation. You were given a bottle of mag citrate to help remedy this. Your hemoglobin was within normal limits. You will be given a prescription for a prednisone burst, please take as directed. This medication was prescribed to you via the [employer] machine in our ER waiting lobby. You will get a total of 20 tablets, the course of the medication will only require 15 so you will have 5 extra. Please take 1 tablet 2 times a day for 5 days, then 1 tablet once a day for 5 days. You were also given a prescription for Phenergan, 1 tablet every 6 hours as needed for nausea and vomiting. There was a 12 mcg fentanyl patch placed at this ER visit, for pain management over the next few days, please remove in 72 hours. If you should need more pain management than the patch is providing, please follow-up with your regular provider to get appropriate pain medicines. Recommend you follow-up with your regular care provider for re-evaluation sometime later this week or as needed. Please return to the ER at any time if symptoms change or worsen. Sepsis Event Note - Evaluation Sepsis Screening Result: No Definite Risk - Focused Exam Vital Signs: Vital Signs Temp Pulse Resp BP Pulse Ox 08/10/19 17:33 98.2 F 101 H 16 137/93 H 97 Date Exam was Performed: 08/10/19 Time Exam was Performed: 19:55 - My Orders Last 24 Hours: My Active Orders 08/10/19 17:56 Orthostatic Vital Signs [RC] ASDIRECTED Sodium Chloride 0.9% [Saline Flush] 10 ml FLUSH ASDIRECTED PRN Peripheral IV Insertion Adult [OM.PC] Routine 08/10/19 17:57 Peripheral IV Care [RC] . DIRECTED 08/10/19 19:29 Oral Fluid Challenge [RC] ASDIRECTED - Assessment/Plan Last 24 Hours: My Active Orders 08/10/19 17:56 Orthostatic Vital Signs [RC] ASDIRECTED Sodium Chloride 0.9% [Saline Flush] 10 ml FLUSH ASDIRECTED PRN Peripheral IV Insertion Adult [OM.PC] Routine 08/10/19 17:57 Peripheral IV Care [RC] . DIRECTED 08/10/19 19:29 Oral Fluid Challenge [RC] ASDIRECTED
[2019-08-10] MEDS ORDERED: diphenhydrAMINE 50 MG/ML SDV IVPUSH ONE (18:47)
[2019-08-10] MEDS ORDERED: Promethazine 25 MG in Sodium Chloride 0.9% 50 ML IV ONE (19:15)
[2019-08-10] MEDS ORDERED: Magnesium Citrate Solution 296 ML Bottle PO ONE (19:21)
--- NOTE | 2019-08-10 19:22 | CR ---
Abdomen: Supine view of the abdomen was obtained. Comparison: No prior abdominal plain film x-ray, previous CT abdomen and pelvis study of 02/14/12. Findings: Bowel gas pattern is normal. Surgical clips are seen from prior cholecystectomy. No abnormal calcifications are seen. Bony structures are unremarkable. Impression: 1. Nothing acute is seen on supine abdominal x-ray. Diagnostic code #2 Study was dictated in MDT
[2019-08-10] MEDS ORDERED: fentaNYL 12 MCG/HR Transdermal Patch TRDERM ONE (19:48)
== END 2019-08-10 20:15 | disposition home or self-care (01) ==
LOC: JD.ED 17:27
DX: K50.911 Crohn's disease, unspecified, with rectal bleeding (principal); I10 Essential (primary) hypertension; R56.9 Unspecified convulsions; F41.9 Anxiety disorder, unspecified; F32.9 Major depressive disorder, single episode, unspecified; F17.210 Nicotine dependence, cigarettes, uncomplicated; Z90.49 Acquired absence of other specified parts of digestive tract; Z88.1 Allergy status to other antibiotic agents; Z88.5 Allergy status to narcotic agent; Z88.8 Allergy status to other drugs, medicaments and biological substances; Z88.2 Allergy status to sulfonamides; Z79.899 Other long term (current) drug therapy
CPT/HCPCS: 36415; 74018; 80053; 85025; 85652; 86140; 96361; 96365; 96375; 96376; 99284; A9270; J1170; J1200; J2405; J2550; J7030; J7050

== ENCOUNTER 2022-02-24 18:57 | Emergency (ER) | payer OTHER, MEDICAID ==
[2022-02-24] MEDS ORDERED: Ondansetron 4 MG/2 ML SDV IVPUSH ONE (19:33)
[2022-02-24] MEDS ORDERED: Sodium Chloride 0.9% 1,000 ML IV SCH (19:45)
[2022-02-24 20:48] LABS: ESTIMATED GFR 115 mL/min (>60)
[2022-02-24 21:54] VITALS: BP 116/90; PULSE 60
== END 2022-02-24 21:47 | disposition home or self-care (01) ==
LOC: JD.ED 18:57
DX: R10.9 Unspecified abdominal pain (principal); I10 Essential (primary) hypertension; Z72.0 Tobacco use; Z88.0 Allergy status to penicillin; Z88.5 Allergy status to narcotic agent; Z88.8 Allergy status to other drugs, medicaments and biological substances; Z88.2 Allergy status to sulfonamides; Z79.899 Other long term (current) drug therapy; Z90.49 Acquired absence of other specified parts of digestive tract; Z90.710 Acquired absence of both cervix and uterus
CPT/HCPCS: 36415; 80053; 80306; 80307; 81003; 83735; 85025; 96361; 96374; 99284; J2405; J7030

== ENCOUNTER 2023-12-20 21:44 | Emergency (ER) | payer BC, MEDICAID, OTHER ==
[2023-12-20 22:17] VITALS: PULSE 85
[2023-12-20 22:41] LABS: BASOPHILS ABSOLUTE AUTO 0.1 K/mm3 (0.0-0.2); BASOPHILS PERCENT AUTO 0.8 % (0.0-1.0); EOSINOPHILS ABSOLUTE AUTO 0.4 K/mm3 (0.0-0.4); EOSINOPHILS PERCENT AUTO 5.1 % (0.0-6.0); HEMATOCRIT 41.5 % (37.0-47.0); HEMOGLOBIN 14.1 gm/dl (12.0-16.0); IMMATURE GRAN ABSOLUTE AUTO 0.01 K/mm3 (0.00-0.05); IMMATURE GRAN PERCENT AUTO 0.1 % (0.0-0.4); LYMPHOCYTES ABSOLUTE AUTO 3.1 K/mm3 (1.0-4.8); LYMPHOCYTES PERCENT AUTO 42.5 % (24.0-44.0); MEAN CORPUSCULAR HEMOGLOBIN 28.9 pg (28.0-32.0); MEAN PLATELET VOLUME 8.9 fl (9.4-12.3); MONOCYTES ABSOLUTE AUTO 0.5 K/mm3 (0.0-0.8); MONOCYTES PERCENT AUTO 6.9 % (0.0-8.0); NEUTROPHILS ABSOLUTE AUTO 3.2 K/mm3 (1.8-7.7); NEUTROPHILS PERCENT AUTO 44.6 % (41.0-71.0); PLATELET COUNT,PLT 351 K/mm3 (150-400); RED BLOOD CELL COUNT 4.88 M/mm3 (4.10-5.30); WHITE BLOOD CELL COUNT,WBC 7.24 K/mm3 (3.9-11.3)
[2023-12-20] MEDS: Sodium Chloride 0.9% 1,000 ML IV STA (22:48)
[2023-12-20] MEDS: Ondansetron 4 MG/2 ML SDV IVPUSH ONE (22:48)
[2023-12-20] MEDS: methylPREDNISolone Sodium Succinate 125 MG/2 ML SDV IVPUSH ONE (22:49)
[2023-12-20] MEDS: HYDROmorphone 0.5 MG/0.5 ML Syringe IVPUSH ONE (22:49)
[2023-12-20] MEDS: Sodium Chloride 0.9% 10 ML Syringe FLUSH PRN (22:49)
[2023-12-20 22:51] LABS: A/G RATIO 0.9 (1-2); ALBUMIN 3.7 g/dl (3.4-5.0); BILIRUBIN TOTAL 0.3 mg/dL (0.2-1.0); BUN/CREATININE RATIO 14.4 (14-18); CALCIUM 8.8 mg/dL (8.5-10.1); CREATININE 0.9 mg/dL (0.55-1.02); EST CRCL DRUG DOSING (CG) 67.69 mL/min; PROTEIN TOTAL,TP 7.7 g/dl (6.4-8.2)
[2023-12-20] MEDS: Promethazine 25 MG Tab PO ONE (23:30)
[2023-12-20] MEDS: diphenhydrAMINE 50 MG/ML SDV IVPUSH ONE (23:30)
[2023-12-20] MEDS: diphenhydrAMINE 50 MG/ML SDV ONE (23:31)
[2023-12-20] MEDS: fentaNYL 100 MCG/2 ML SDV IVPUSH ONE (23:31)
[2023-12-21] MEDS: HYDROmorphone 0.5 MG/0.5 ML Syringe IVPUSH ONE (00:22)
[2023-12-21 00:25] VITALS: BP 115/85
== END 2023-12-21 00:27 | disposition home or self-care (01) ==
LOC: JD.ED 21:44
DX: K50.919 Crohn's disease, unspecified, with unspecified complications (principal); R11.2 Nausea with vomiting, unspecified; R10.9 Unspecified abdominal pain; Z88.2 Allergy status to sulfonamides; Z88.5 Allergy status to narcotic agent; Z88.8 Allergy status to other drugs, medicaments and biological substances; Z79.899 Other long term (current) drug therapy; Z90.49 Acquired absence of other specified parts of digestive tract; Z90.710 Acquired absence of both cervix and uterus
CPT/HCPCS: 36415; 80053; 83690; 85025; 96361; 96374; 96375; 96376; 99284; J1200; J2405; J2919; J3010; J3490; J7030; J8597